=== PATIENT | female | born 2000 | race Caucasian/White ===

== ENCOUNTER 2018-09-22 12:00 | Day surgery (SDC) | payer MEDICAID, OTHER ==
[2018-09-22 12:59] VITALS: BMI 26.1
[2018-09-22] MEDS ORDERED: Lactated Ringer's 1,000 ML IV SCH ×2 (13:00)
[2018-09-22] MEDS ORDERED: Ondansetron PF 4 MG/2 ML Vial IVP SCH (13:00)
[2018-09-22 13:23] LABS: #Basophils 0.1 thou/uL (0.0-0.2); #Eosinphils 0.1 thou/uL (0.0-0.7); #Lymphocytes 1.7 thou/uL (1.20-3.40); #Monocytes 0.6 thou/uL (0.11-0.59); #Neutrophils 4.8 thou/uL (1.40-6.50); %Basophils 0.9 % (0.0-1.0); %Eosinophils 1.8 % (0.0-10.0); %Lymphocytes 23.2 % (28.0-48.0); %Monocytes 8.8 % (0.0-4.0); %Neutrophils 65.3 % (31.0-61.0); Hemoglobin 11.1 g/dL (12.0-16.0); Mean Corpuscular HGB CONC 33.2 g/dL (32.0-36.0); Mean Corpuscular Hemoglobin 28.5 pg (25.0-35.0); Mean Corpuscular Volume 85.8 fL (78.0-98.0); Mean Platelet Volume 6.6 fL (7.4-10.4); Platelet Count 299 thou/uL (130-400); RBC Distribution Width 11.4 % (11.5-14.5); White Blood Cell (WBC) Count 7.3 thou/uL (4.8-10.8)
[2018-09-22 13:47] LABS: ALT (SGPT) 39 U/L (8-55); AST (SGOT) 30 U/L (5-34); Albumin 3.2 g/dL (3.5-5.0); Alkaline Phosphatase 160 U/L (40-150); Anion Gap 11 mmol/L (10-20); BUN (Urea Nitrogen) 5 mg/dL (7.0-18.7); Bilirubin, Total 0.4 mg/dL (0.2-1.2); Calc. Creatinine Clearance 158 mL/min (70-130); Calcium 9.1 mg/dL (7.8-10.44); Carbon Dioxide 20 mmol/L (22-29); Chloride 107 mmol/L (98-107); Estimated GFR-MDRD Greater than 90; Globulin 3.2 g/dL (2.4-3.5); Glucose 74 mg/dL (70-105); Potassium 4.3 mmol/L (3.5-5.1); Protein, Total 6.4 g/dL (6.0-8.3); Sodium 134 mmol/L (136-145)
[2018-09-22 13:49] LABS: Bilirubin Negative (Negative); Blood, Urine Negative (Negative); Clarity CLOUDY (Clear); Glucose, Urine (Dipstick) Negative (Negative); Leukocyte Small (Negative); Nitrite Negative (Negative); Protein, Urine (Dipstick) Trace mg/dL (Neg-Trace); Specific Gravity, Urine 1.027 (1.002-1.036); pH, Urine 7.5 (5.0-9.0)
[2018-09-22 13:52] LABS: Bacteria/HPF None Seen HPF (None Seen); Hyaline Casts/LPF 0-3 HYALINE CAST LPF (0-3 Hyaline); Pathc Cast-AUWi Flag 1.45 (0-2.49); RBC/HPF 0-3 HPF (0-3); Squamous Epithelial 0-3 HPF (0-3)
[2018-09-22] MEDS ORDERED: Butorphanol Tartrate 1 MG/ML VIAL ONE (15:22)
[2018-09-22] MEDS ORDERED: Butorphanol Tartrate 1 MG/ML VIAL SLOW IVP PRN (15:25)
[2018-09-22] MEDS ORDERED: Fluconazole 100 MG TAB PO SCH (15:45)
[2018-09-22 16:18] LABS: Amphetamine Not Detected (NotDetected); Barbiturates Screen Not Detected (NotDetected); Benzodiazepine Screen Not Detected (NotDetected); Cocaine Metabolite Screen Not Detected (NotDetected); Medtox Control Line Valid? VALID (VALID); Medtox Reader # READER 1; Methadone Not Detected (NotDetected); Methamphetamine Not Detected (NotDetected); Opiate Screen Not Detected (NotDetected); Oxycodone Screen Not Detected (NotDetected); Phencyclidine (PCP) Not Detected (NotDetected); THC/Cannabinoid Screen Not Detected (NotDetected); Tricyclic Screen Not Detected (NotDetected)
--- NOTE | 2018-09-23 08:43 | SS ---
DATE OF ADMISSION: 09/22/2018 DATE OF DISCHARGE: 09/22/2018 LABOR AND DELIVERY TRIAGE NOTE. EVALUATING PHYSICIAN: Flakito Reyna MD CHIEF COMPLAINT: Dizzy, nausea, and cramping. HISTORY OF PRESENT ILLNESS: Ms. Hull is a 18-year-old white, G3, P1, AB1 with an estimated date of confinement on 11/08/2018, who presents to triage complaining of a 1-day history of dizzy with nausea and intermittent abdominal cramping. She denies bleeding or ruptured membranes. She reports active movement. The patient is from out of town and she is currently at the [facility]. PAST OBSTETRICAL HISTORY: One 35-week vaginal delivery, secondary to suspected preeclampsia and miscarriage. PAST MEDICAL HISTORY: None. PAST SURGICAL HISTORY: Tonsillectomy and adenoidectomy. CURRENT MEDICATIONS: vitamins and unknown antibiotic, for what she describes as urinary tract infection. ALLERGIES: IODINE. SOCIAL HISTORY: Denies tobacco, alcohol, or drug use. FAMILY HISTORY: Unremarkable. REVIEW OF SYSTEMS: Positive for nausea or cramping. Negative for fever, chills, ruptured membranes, or vaginal bleeding. PHYSICAL EXAMINATION: VITAL SIGNS: Blood pressure 113/69, pulse 92, and temperature 98.8. GENERAL: She answers all questions appropriately. She does look fatigued. ABDOMEN: Soft, nontender, and gravid. PELVIC EXAMINATION: Shows the cervix to be closed, very posterior in the vaginal vault. heart tones are stable in the 150s. Initially irregular contractions with irritability are seen. LABORATORY DATA: White count 7.3, hemoglobin and hematocrit 11.1 and 33.5 respectively, and platelet count 299,000. Chemistry; sodium 134, potassium 4.3, and creatinine 0.62. Urinalysis shows a specific gravity of 1.027. There is negative blood or nitrites. There is a small amount of leukocyte esterase. On microscopic, there are no bacteria. Urine drug screen is negative. The patient was given IV fluids and a single dose of Stadol. She responded well to this. Her pelvic exam was rechecked by the labor nurse and she had made no change. ASSESSMENT: 1. A 33-1/2 intrauterine . 2. No evidence of labor. 3. VPIII shows [place] and bacterial vaginosis. PLAN: The patient will be discharged to home. She was given a prescription for Flagyl 250 mg one p.o. t.i.d. to take for a week when she starts to feel better. She was given a dose of Diflucan here. I have spoken with the residency program and they will make arrangements for her to have an immediate appointment at the clinic. She voices understanding of her discharge instructions and was sent home in good condition. Job ID: [id number]
[2018-09-26 02:08] LABS: Chlamydia by PCR Not Detected (NotDetected); GC by PCR Not Detected (NotDetected)
== END 2018-09-22 17:28 | disposition home or self-care (01) ==
LOC: L&D/OP 12:00 → EEVIPCON 12:00 → L&D/OP 17:28
PROVIDERS: ATTEND Obstetrics & Gynecology
DX: O99.89 Other specified diseases and conditions complicating pregnancy, childbirth and the puerperium (principal); R42 Dizziness and giddiness; O23.593 Infection of other part of genital tract in pregnancy, third trimester; O98.813 Other maternal infectious and parasitic diseases complicating pregnancy, third trimester; Z3A.33 33 weeks gestation of pregnancy; Z90.89 Acquired absence of other organs; Z79.899 Other long term (current) drug therapy
CPT/HCPCS: 36415; 51701; 80053; 80306; 81003; 81015; 85025; 87480; 87491; 87510; 87591; 87660; 96360; 96361; 96375; 99285; A4353; J0595

== ENCOUNTER 2018-10-08 11:21 | Day surgery (SDC) | payer OTHER ==
[2018-10-08 11:47] VITALS: BP 115/74; TEMP 97.9
[2018-10-08 11:49] VITALS: BMI 28.3
--- NOTE | 2018-10-08 11:58 | PDOC.FPROB ---
FMR OB H&P: HPI - History of Present Illness Chief Complaint: PPROM Indentification: 18 yo at 36.0 wks by LMP/21.1wk US History of Present Illness: THis is a 18 yo at 36.0 wks by LMP/21.1wk US who presents to L&D with a cc of loss of fluids. Pt states that she felt a loss of clear fluids last night at ~1830 and had to change a pad. She also reports some contractions vs cramping with no pattern. She denies vaginal bleeding, itching, or burning. She denies recent intercourse. She reports FM. 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 - Surgical History Sx History: adenoidectomy, tonsillectomy - Social History Social History: none - Family History Family History: Mother and father have HTN and diabetes FMR OB H&P: Medications - Current Home Medications: Medication Instructions Recorded Confirmed Type Vitamin 1 tablet PO DAILY 10/08/18 10/08/18 History Allergies/Adverse Reactions: Allergies Allergy/AdvReac Type Severity Reaction Status Date / Time iodine Allergy Verified 09/22/18 12:46 FMR OB H&P: ROS - Review of Systems General: denies: fever/chills, weight/appetite/sleep changes, fatigue Eyes: denies: eye pain, vision changes ENT: denies: nasal congestion, rhinorrhea Cardiovascular: denies: chest pain, palpitation Respiratory: denies: cough, congestion, shortness of breath Gastrointestinal: denies: abdominal pain, indigestion Genitourinary (Female): reports: contractions (possible), vaginal pressure. denies: dysuria, vaginal pain, vaginal bleeding Musculoskeletal: denies: pain, stiffness, tenderness Neurologic: denies: numbness, syncope Integumentary: denies: itching, rash Psychological: reports: depression. denies: anxiety FMR OB H&P: Vital Signs - Maternal Vital signs: Vital Signs - First Documented Temp Pulse Resp BP 97.9 F 110 H 18 115/74 10/08/18 11:37 10/08/18 11:37 10/08/18 11:37 10/08/18 11:37 - Heart Tones Baseline: 150 (Reactive NST) Variability: moderate Acceleration: present Deceleration: absent [place] contractions every: None seen FMR OB H&P: Physical Exam - Physical Exam General: NAD, awake, alert and oriented HEENT: normocephalic and atraumatic, MMM Neck: supple, trachea midline Chest: non-tender to palpation, no lesions Heart: RRR, normal S1/S2, no murmurs/rubs/gallops General: CTAB, no respiratory distress Abdomen: soft, gravid, non-tender, bowel sound present Musculoskeletal: normal gait and station, pulses present, FROM in all four extremities Neurological: sensation to pain,touch and proprioception grossly normal Skin: good tugor, capillary refill <2 seconds Psychiatric: intact recent and remote memory, normal mood and affect - Pelvic Exam SVE: C/T/H FMR OB H&P: A/P - Problem List (1) Third trimester Status: Acute Code(s): Z34.93 - ENCNTR FOR SUPRVSN OF NORMAL PREG, UNSP, THIRD TRIMESTER Disposition: This is a 18 yo at 36.0wks by LMP/21.1 wk Third trimester , R/O ruptured membranes -Speculum exam and valsalva test inconclusive, white discharge noted -SVE C/T/H -Amnisure negative -HIRAM 7.3 -FHTs Reactive NST, accels present, baseline 150s, moderate variability, no contractions seen -Pending VP3 -Continue PNV Positive chlamydia test in clinic -Pending KELLY today Pt to be discharged and follow up with [facility] in 2-3 days. She will need a repeat HIRAM. Return precautions given. I called Aud[facility] at [facility] to coordinate the follow up visit above. Discussion: Date/Time: 10/08/18 6788 This H&P was discussed with Dr. Reyna who agree with the above documentation and plan. Signature: Chi Amaro, PGY-1 Addendum - Attending - Attending Attestation Date/Time: 10/08/18 2866 I evaluated the patient and discussed the management with Dr. Amaro. I agree with the History, Examination, Assessment and Plan.
[2018-10-08 12:48] LABS: Amnisure Test No Membranes Rupture (No Rupture)
[2018-10-08 12:50] LABS: Amnisure Internal Control QC ACCEPTABLE (ACCEPTABLE)
== END 2018-10-08 13:33 | disposition home or self-care (01) ==
LOC: L&D/OP 11:21
PROVIDERS: ATTEND Obstetrics & Gynecology
DX: O99.89 Other specified diseases and conditions complicating pregnancy, childbirth and the puerperium (principal); N89.8 Other specified noninflammatory disorders of vagina; O99.343 Other mental disorders complicating pregnancy, third trimester; F32.9 Major depressive disorder, single episode, unspecified; O99.013 Anemia complicating pregnancy, third trimester; O13.3 Gestational [pregnancy-induced] hypertension without significant proteinuria, third trimester; Z90.89 Acquired absence of other organs; Z3A.36 36 weeks gestation of pregnancy
CPT/HCPCS: 84112; 87480; 87510; 87660; 99283

== ENCOUNTER 2018-10-18 13:09 | Day surgery (SDC) | payer OTHER ==
[2018-10-18 13:56] VITALS: BMI 28.8
[2018-10-18] MEDS ORDERED: Acetaminophen 500 MG TAB PO SCH (14:30)
--- NOTE | 2018-10-18 14:33 | PDOC.FPROB ---
FMR OB H&P: HPI - History of Present Illness Chief Complaint: "baby dropping" History of Present Illness: 18 yo at 37.2 by LMP/reported 1T sono here with cc of feeling baby is lower. She notes that yesterday other people at the residential were telling her the baby was lower. Last night she had some irregular contractions and pelvic pain and felt baby was getting really low. She wanted to come in to get checked. She denies VB, endorses regular FM. She states she has some white discharge which she has had for weeks. She was "checked" a couple of weeks ago with no infection. She states the discharge has not changed. Denies dysuria, hematuria, foul smelling urine. Denies leakage of clear fluid. Primary Care Physician: Mer Mark DO FMR OB H&P: Current - Care : 3 Para: 1011 Gestational age: 37.2 Due date: 11/05/2018 Dating Criteria: LMP/reported 5w sono (c/w 30.2w sono) - OB Labs Blood type: B RH: negative Antibody Screen: negative HIV: negative RPR: negative HepBsAg: negative Rubella: non-immune Gonorrhea: negative Chlamydia: positive (reports KELLY negative at last office visit) 1 hour gtt: not documented - reportely normal A1c: 4.8 GBS: unknown (swab done earlier this week at clinic) - First Trimester Ultrasound First trimester: reports 5w sono - Anatomy Survey Anatomy survey: 30.2w sono - all normal, posterior placenta FMR OB H&P: History - Past Medical History PMH: "HTN in in the past" normal this Anemia of Depression Rh negative Rubella non-immune - OB History OB History: 1 labor at 36 w ( in 2017) 1 SAB - [employer] History [employer] History: 11/irregular/3 days - Surgical History Sx History: T&A Tympanostomy tubes - Social History Social History: Denies t/a/d use, lives in residential currently - Family History Family History: DM, HTN on both sides FMR OB H&P: Medications - Current Home Medications: Medication Instructions Recorded Confirmed Type Vitamin 1 tablet PO DAILY 10/08/18 10/18/18 History Allergies/Adverse Reactions: Allergies Allergy/AdvReac Type Severity Reaction Status Date / Time iodine Allergy Verified 09/22/18 12:46 FMR OB H&P: ROS - Review of Systems General: denies: fever/chills, weight/appetite/sleep changes Eyes: denies: vision changes, double vision ENT: denies: nasal congestion, rhinorrhea Cardiovascular: denies: chest pain, palpitation Respiratory: denies: cough, congestion Gastrointestinal: reports: abdominal pain. denies: nausea, vomiting, diarrhea Musculoskeletal: reports: pain. denies: stiffness, tenderness Neurologic: denies: numbness, syncope Integumentary: denies: rash, lesions Endocrine: denies: cold intolerance, heat intolerance Hematologic/Lymphatic: denies: prolonged or excessive bleeding Psychological: denies: depression, anxiety FMR OB H&P: Vital Signs - Maternal Vital signs: BP 95/69 P 94 R 16 - Heart Tones Baseline: 140 Variability: moderate Acceleration: present Deceleration: absent [place] contractions every: none FMR OB H&P: Physical Exam - Physical Exam General: NAD, awake, alert and oriented HEENT: normocephalic and atraumatic Neck: supple, trachea midline Heart: RRR, normal S1/S2 General: CTAB, no respiratory distress Abdomen: soft, gravid Musculoskeletal: normal gait and station Skin: no rash, good tugor Psychiatric: intact recent and remote memory, good judgement and insight, normal mood and affect - Pelvic Exam SVE: 0/50/-2 Presentation: vertex FMR OB H&P: A/P - Problem List (1) Pelvic pain Current Visit: Yes Status: Acute Code(s): R10.2 - PELVIC AND PERINEAL PAIN (2) Third trimester Current Visit: No Status: Acute Code(s): Z34.93 - ENCNTR FOR SUPRVSN OF NORMAL PREG, UNSP, THIRD TRIMESTER Disposition: 18 yo at 37.2 by LMP/reported 5w sono (c/w 30w sono) here with pelvic pressure 1. Pelvic pressure - still 0/50/-2 - return precautions given - no ctx on toco - tylenol PRN pelvic discomfort - encouraged hydration 2. Rh negative - confident she got Rhogam at 28w - will need #2 at delivery 3. Rubella non-immune - MMR post delivery 4. Depression - no SI/HI - no meds currently 5. Anemia of 6. H/o PTL - No [place] this preg - No longer 7. Chlamydia this - KELLY negative per patient 8. GBS swab done last clinic visit, pending F/u at [facility] next week Discussion: Date/Time: 10/18/18 2904 This H&P was discussed with Dr. Byrd who agrees with the above documentation and plan.
--- NOTE | 2018-10-18 14:43 | PDOC.EVN ---
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 No LOF, No VB, no real CTX. CX closed/th/high VSSAFEB NST reactive No reason to suspect maternal- complication OK for outpatient care. Please see full H&P other entry I have seen the patient at bedside and care discussed
== END 2018-10-18 14:45 | disposition home or self-care (01) ==
LOC: L&D/OP 13:09
PROVIDERS: ATTEND Obstetrics & Gynecology
DX: O99.89 Other specified diseases and conditions complicating pregnancy, childbirth and the puerperium (principal); R10.2 Pelvic and perineal pain; O99.013 Anemia complicating pregnancy, third trimester; O99.343 Other mental disorders complicating pregnancy, third trimester; F32.9 Major depressive disorder, single episode, unspecified; O98.813 Other maternal infectious and parasitic diseases complicating pregnancy, third trimester; Z3A.37 37 weeks gestation of pregnancy; Z90.89 Acquired absence of other organs; Z91.09 Other allergy status, other than to drugs and biological substances
CPT/HCPCS: 99282

== ENCOUNTER 2018-10-26 22:25 | Emergency (ER) | payer OTHER ==
[2018-10-27] MEDS ORDERED: Mag-Al 1200 mg/1200 mg/30 ML UDCUP ONE (00:29)
--- NOTE | 2018-10-27 08:40 | RAD ---
SINGLE VIEW OF THE CHEST: COMPARISON: None. HISTORY: Anxiety for 3 days with chest pain. FINDINGS: Single view of the chest shows a normal sized cardiomediastinal silhouette. There is no evidence of c onsolidation, mass, or pleural effusion. The bones are unremarkable. IMPRESSION: No evidence of acute cardiopulmonary disease. POS: [facility]
== END 2018-10-27 03:00 | disposition home or self-care (01) ==
LOC: ERS 22:25
DX: O99.613 Diseases of the digestive system complicating pregnancy, third trimester (principal); K21.9 Gastro-esophageal reflux disease without esophagitis; O99.343 Other mental disorders complicating pregnancy, third trimester; F41.9 Anxiety disorder, unspecified; F32.9 Major depressive disorder, single episode, unspecified; Z3A.38 38 weeks gestation of pregnancy
CPT/HCPCS: 71045; 93005

== ENCOUNTER 2018-10-29 06:18 | Inpatient (IN) | payer OTHER ==
[2018-10-29] MEDS ORDERED: Ibuprofen 800 MG TAB PO PRN (06:59)
[2018-10-29] MEDS ORDERED: Lidocaine 1% (PF) 30 ML VIAL SC PRN ×2 (06:59→07:46)
[2018-10-29] MEDS ORDERED: HYDROcodone/Acetaminophen 5/325 mg Tablet PO PRN (06:59)
[2018-10-29] MEDS ORDERED: Ondansetron PF 4 MG/2 ML Vial IVP PRN ×2 (06:59→07:34)
[2018-10-29] MEDS ORDERED: NS / Oxytocin 40 units/1000ml 1,000 ML IV PRN ×2 (06:59→07:46)
[2018-10-29] MEDS ORDERED: Lactated Ringer's 1,000 ML IV SCH (07:00)
[2018-10-29] MEDS ORDERED: Penicillin G Potassium 5 MILL.UNITS in Sodium Chloride 0.9% 100 ML IVPB SCH (07:00)
[2018-10-29] MEDS ORDERED: Fentanyl 4 mcg/Bup 0.1% Cadd 100 ML ONE (07:18)
[2018-10-29] MEDS ORDERED: Acetaminophen 325 MG TAB PO PRN ×2 (07:34→14:03)
[2018-10-29] MEDS ORDERED: Eucerin (Mineral Oil/Petrolatum,White) 30 gm Jar TOP PRN (07:34)
[2018-10-29] MEDS ORDERED: Promethazine HCl 25 MG/ML VIAL IM PRN (07:34)
[2018-10-29] MEDS ORDERED: ePHEDrine/0.9% NaCl/PF SYRINGE 50 mg/10 ml SLOW IVP PRN (07:34)
[2018-10-29] MEDS ORDERED: diphenhydrAMINE 50 MG/ML VIAL IVP PRN (07:34)
[2018-10-29] MEDS ORDERED: Lactated Ringer's 500 ML IV PRN (07:34)
[2018-10-29] MEDS ORDERED: Naloxone HCl 0.4 mg/ml Vial IVP PRN ×2 (07:34)
[2018-10-29 07:36] LABS: Hemoglobin 11.4 g/dL (12.0-16.0); Mean Corpuscular HGB CONC 34.2 g/dL (32.0-36.0); Mean Corpuscular Hemoglobin 28.3 pg (25.0-35.0); Mean Corpuscular Volume 82.8 fL (78.0-98.0); Platelet Count 239 thou/uL (130-400); RBC Distribution Width 12.6 % (11.5-14.5); Red Blood Cell (RBC) Count 4.03 mill/uL (4.00-5.20); White Blood Cell (WBC) Count 8.3 thou/uL (4.8-10.8)
[2018-10-29] MEDS ORDERED: Lidocaine 1.5%/Epinephrine 1:200,000 5 ML AMPUL IJ ONE (07:42)
[2018-10-29 07:43] VITALS: BMI 29.0
[2018-10-29] MEDS ORDERED: Fentanyl 4 mcg/Bupivacaine 0.1% Cassette 100 ML EPIDURAL SCH (07:45)
[2018-10-29] MEDS ORDERED: Communication Order-Pharmacy FS SCH (07:45)
--- NOTE | 2018-10-29 08:07 | PDOC.FPROB ---
FMR OB H&P: HPI - History of Present Illness Chief Complaint: CTX Indentification: History of Present Illness: at 38.4 by uncertain dating (sono records pending) here for CTX. Started this morning q5min inc. in frequency to q4min. Endorses FM. Denies LOF VB. Recevied prior care out of town in [place] with transfer to [facility]. complicated by chlamydia positive with tx 09/04/18 Primary Care Physician: Dr. Mark FMR OB H&P: Current - Care : 3 Para: 1001 Gestational age: 38.4 Due date: 11/05/18 - OB Labs Blood type: B RH: negative Antibody Screen: negative HIV: negative RPR: negative HepBsAg: negative Rubella: non-immune Quad screen: unknown (declined) Urine drug screen: not done Gonorrhea: negative Chlamydia: positive (tx 09/04/18 ,pending KELLY) GBS: unknown FMR OB H&P: History - Past Medical History PMH: MDD - OB History OB History: 1. Hx of PTL 2. SAB - Surgical History Sx History: tonsillectomy, adenoids - Social History Social History: denies t/e/d - Family History Family History: Pt's daughter has sickle cell trait but no hx of it being tested FMR OB H&P: Medications - Current Home Medications: Medication Instructions Recorded Confirmed Type Vitamin 1 tablet PO DAILY 10/08/18 10/29/18 History Allergies/Adverse Reactions: Allergies Allergy/AdvReac Type Severity Reaction Status Date / Time iodine Allergy Verified 10/29/18 07:28 FMR OB H&P: ROS - Review of Systems General: denies: fever/chills, weight/appetite/sleep changes ENT: denies: nasal congestion, rhinorrhea Cardiovascular: denies: chest pain, palpitation Respiratory: denies: shortness of breath Gastrointestinal: reports: cramping. denies: abdominal pain, indigestion, nausea Genitourinary (Female): reports: vaginal pressure. denies: vaginal discharge, vaginal pain Musculoskeletal: denies: stiffness, tenderness Neurologic: denies: syncope, seizures Integumentary: denies: rash, lesions FMR OB H&P: Vital Signs - Maternal Vital signs: Vital Signs - First Documented Temp Pulse Resp BP 97.8 F 76 20 115/74 10/29/18 07:26 10/29/18 07:26 10/29/18 07:26 10/29/18 07:26 - Heart Tones Baseline: 130 Variability: moderate Acceleration: present Deceleration: absent Category: category 1 [place] contractions every: uterine irritability FMR OB H&P: Physical Exam - Physical Exam General: NAD, awake, alert and oriented HEENT: normocephalic and atraumatic Neck: supple, FROM, trachea midline Breast: symmetric, non-tender General: no retractions Abdomen: gravid Musculoskeletal: pulses present, FROM in all four extremities Psychiatric: intact recent and remote memory, good judgement and insight - Pelvic Exam SVE: /+1 FMR OB H&P: Results - Labs Lab results: Laboratory Results - last 24 hr 10/29/18 10/29/18 07:29 07:29 WBC 8.3 RBC 4.03 Hgb 11.4 L Hct 33.4 L MCV 82.8 MCH 28.3 MCHC 34.2 RDW 12.6 Plt Count 239 MPV 7.0 L Blood Type B NEGATIVE Antibody Screen NEGATIVE FMR OB H&P: A/P - Problem List (1) Third trimester Current Visit: No Status: Acute Code(s): Z34.93 - ENCNTR FOR SUPRVSN OF NORMAL PREG, UNSP, THIRD TRIMESTER (2) Rh negative status during Current Visit: Yes Status: Acute Code(s): O26.899 - OTH RELATED CONDITIONS, UNSPECIFIED TRIMESTER; Z67.91 - UNSPECIFIED BLOOD TYPE, RH NEGATIVE (3) Rubella non-immune status, antepartum Current Visit: Yes Status: Acute Code(s): O99.89 - OTH DISEASES AND CONDITIONS COMPL PREG/CHLDBRTH; Z28.3 - UNDERIMMUNIZATION STATUS (4) History of chlamydia infection Current Visit: Yes Status: Acute Code(s): Z86.19 - PERSONAL HISTORY OF OTHER INFECTIOUS AND PARASITIC DISEASES (5) Major depression, chronic Current Visit: Yes Status: Acute Code(s): F32.9 - MAJOR DEPRESSIVE DISORDER , SINGLE EPISODE, UNSPECIFIED (6) History of labor Current Visit: Yes Status: Acute Code(s): Z87.51 - PERSONAL HISTORY OF PRE- TERM LABOR Discussion: Date/Time: 10/29/18 0804 18 yo at 38.4 by uncertain dating (record pending) admitted for active labor #sIUP, term -/+1, intact, uterine irritability -epidural placed -will recheck at 0840, can start pitocin at this time to help with CTX #Rubella nonimmune -will need PP vaccination #Rh negative -no records of Rhogam, will need this #Chlamydia in -Treated 09/04/18, no records of KELLY -Will request records #GBS unknown -No hx of septicemia, will start PPX until records come in #MDD -stable per last clinic records -on zoloft, hold for now This H&P was discussed with [] and [] who agree with the above documentation and plan. Addendum - Attending - Attending Attestation Date/Time: 10/29/18 1202 I personally evaluated the patient and discussed the management with Dr. Brewster. I agree with the History, Examination, Assessment and Plan documented above.
[2018-10-29 08:15] LABS: HBSAg Index 0.27 S/CO (0-0.99); Hep B Surf Ag Non-Reactive S/CO (NonReactive); Syphilis Antibody Nonreactive (Nonreactive); Syphilis Antibody Index 0.05 S/CO (<1.00 Non-Reactive)
[2018-10-29] MEDS ORDERED: NS w/ Oxytocin 10 units 500 ML IV SCH (09:00)
[2018-10-29] MEDS: Lactated Ringer's 1,000 ML IV SCH ×2 (09:53→10:35)
[2018-10-29] MEDS ORDERED: Lidocaine 1% (PF) 30 ML VIAL ONE (10:34)
[2018-10-29] MEDS ORDERED: NS / Oxytocin 40 units/1000ml 1,000 ML ONE (10:34)
[2018-10-29] MEDS ORDERED: Penicillin G 2.5 MILL.units 2.5 MILL.UNITS in Premix Bag 1 BAG IVPB SCH (11:00)
--- NOTE | 2018-10-29 11:42 | PDOC.LDPN ---
Labor & Delivery Progress Note - Subjective Subjective: comfortable, vaginal pressure - Objective Vital signs reviewed and normal: yes General: NAD Dilation: 7 Effacement: 90% Station: 1+ FHT: category 1 [place] contractions every: uterine irritability AROM: clear fluid - Assessment (1) Third trimester Code(s): Z34.93 - ENCNTR FOR SUPRVSN OF NORMAL PREG, UNSP, THIRD TRIMESTER Current Visit: No Status: Acute (2) Rh negative status during Code(s): O26.899 - OTH RELATED CONDITIONS, UNSPECIFIED TRIMESTER; Z67.91 - UNSPECIFIED BLOOD TYPE, RH NEGATIVE Current Visit: Yes Status: Acute (3) Rubella non-immune status, antepartum Code(s): O99.89 - OTH DISEASES AND CONDITIONS COMPL PREG/CHLDBRTH; Z28.3 - UNDERIMMUNIZATION STATUS Current Visit: Yes Status: Acute (4) History of chlamydia infection Code(s): Z86.19 - PERSONAL HISTORY OF OTHER INFECTIOUS AND PARASITIC DISEASES Current Visit: Yes Status: Acute (5) Major depression, chronic Code(s): F32.9 - MAJOR DEPRESSIVE DISORDER, SINGLE EPISODE, UNSPECIFIED Current Visit: Yes Status: Acute (6) History of labor Code(s): Z87.51 - PERSONAL HISTORY OF PRE-TERM LABOR Current Visit: Yes Status: Acute Plan: continue plan of care, pitocin for augmentation -: 18 yo at 38.4 by uncertain dating (record pending) admitted for active labor #sIUP, term -/+1, intact, uterine irritability -epidural placed -AROM, clear -start pitocin, recheck in 2 hours #Rubella nonimmune -will need PP vaccination #Rh negative -no records of Rhogam, will need this #Chlamydia in -Treated 09/04/18, no records of KELLY -Will request records #GBS unknown -No hx of septicemia, will start PPX until records come in #MDD -stable per last clinic records -on zoloft, hold for now Addendum - Attending - Attending Attestation Date/Time: 10/29/18 1201 I personally evaluated the patient and discussed the management with Dr. Brewster. I agree with the History, Examination, Assessment and Plan documented above.
--- NOTE | 2018-10-29 11:47 | PDOC.EVN ---
Event Note - Event Note Event Note: Vaginal Delivery Procedure Note Delivering Physician: Deedee Epps Attending Dr. Reyna Procedure: Spontaneous Vaginal Delivery Anesthesia: epidural QBL: Pending (EBL 200) Pre-op Diagnosis: 1. Term intrauterine in labor 2. Hx of macrosomia, hx of preeclampsia, hx of infections Post-op Diagnosis: 1. Term intrauterine , delivered 2. same as above Indications: A 18y/o female now presents for CTX Delivery Note: This is 18yo F now @ 38.4 wks who delivered a viable F infant on 10/29/18 @1112 Following an uneventful antepartum course, a vigorous F was delivered over the perineum in the occipitoanterior position. Anterior Shoulder and then remainder of the body delivered. No nuchal cord. The head was held down and mouth and nares were bulb suctioned. Cord clamped after delayed cord clamping and cut and cord blood collected. Placenta delivered intact in the Laws presentation with a 3 vessel cord noted. Fundal massage was performed and the fundus was firm. The cervix and vagina were inspected and presence of 1st degree perineal laceration was found. Hemostasis spontaneously achieved without suture repair. went to nursery in good condition for routine care. Apgars were 8/9 at 1 & 5 minutes, respectively. Patient tolerated delivery well and went to after routine recovery/ care. Addendum - Attending - Attending Attestation Date/Time: 10/29/18 0786 I personally evaluated the patient and discussed the management with Drs. Brewster and Alex. I agree with the History, Examination, Assessment and Plan documented above. Present to assist with this uncomplicated .
[2018-10-29] MEDS ORDERED: Adacel (T-DAP) 0.5 ML SYRINGE IM ONE (14:03)
[2018-10-29] MEDS ORDERED: NS / Oxytocin 40 units/1000ml 1,000 ML IV SCH (14:03)
[2018-10-29] MEDS ORDERED: Bisacodyl 10 MG SUPP PR PRN (14:03)
[2018-10-29] MEDS ORDERED: Milk Of Magnesia 30 ML UDCUP PO PRN (14:03)
[2018-10-29] MEDS: Ibuprofen 800 MG TAB PO PRN (15:01)
[2018-10-29] MEDS: Ferrous Sulfate 325 MG TAB PO SCH (17:39)
[2018-10-29] MEDS ORDERED: ePHEDrine/0.9% NaCl/PF SYRINGE 50 mg/10 ml ONE (20:09)
[2018-10-29] MEDS: Docusate Calcium (SURFAK) 240 MG CAP PO SCH (22:07)
[2018-10-30] MEDS: Ibuprofen 800 MG TAB PO PRN ×2 (05:51→12:37)
[2018-10-30 07:11] LABS: Mean Corpuscular HGB CONC 33.2 g/dL (32.0-36.0); Mean Corpuscular Hemoglobin 28.4 pg (25.0-35.0); Mean Corpuscular Volume 85.5 fL (78.0-98.0); Mean Platelet Volume 7.1 fL (7.4-10.4); Platelet Count 265 thou/uL (130-400); RBC Distribution Width 12.8 % (11.5-14.5); Red Blood Cell (RBC) Count 4.23 mill/uL (4.00-5.20); White Blood Cell (WBC) Count 8.8 thou/uL (4.8-10.8)
--- NOTE | 2018-10-30 07:20 | PDOC.PP ---
Post Progress Note Post Day #: 1 Subjective: Patient doing very well. Tolerating PO. Minimal lochia. well. Pain well controlled. PO intake tolerated: yes Flatus: yes Ambulation: yes Vital Signs (12 hours) Temp Pulse Resp BP Pulse Ox 10/30/18 04:20 98.2 F 61 18 98/66 10/30/18 00:50 98.5 F 69 18 111/71 10/29/18 19:30 98.8 F 58 L 18 110/56 L 98 Weight Weight 74.389 kg - Physical Examination General: NAD Cardiovascular: RRR Respiratory: non-labored breathing Abdominal: lochia (minimal), no distention, appropriately TTP Fundus firm & at: at umbilicus Neurological: no gross focal deficits Psychiatric: A&Ox3, normal affect Result Diagrams: 10/30/18 06:40 Additional Labs: Post Labs Blood Type B NEGATIVE 10/29/18 07:29 Hep Bs Antigen Non-Reactive S/CO (NonReactive) 10/29/18 07:29 (1) Term delivered Code(s): O80 - ENCOUNTER FOR FULL-TERM UNCOMPLICATED DELIVERY Status: Acute (2) Rubella nonimmune status, delivered, current hospitalization Code(s): O99.89 - OTH DISEASES AND CONDITIONS COMPL PREG/CHLDBRTH; Z28.3 - UNDERIMMUNIZATION STATUS Status: Acute (3) History of chlamydia infection Code(s): Z86.19 - PERSONAL HISTORY OF OTHER INFECTIOUS AND PARASITIC DISEASES Status: Acute (4) Major depression, chronic Code(s): F32.9 - MAJOR DEPRESSIVE DISORDER, SINGLE EPISODE, UNSPECIFIED Status : Acute (5) Rh negative status during Code(s): O26.899 - OTH RELATED CONDITIONS, UNSPECIFIED TRIMESTER; Z67.91 - UNSPECIFIED BLOOD TYPE, RH NEGATIVE Status: Acute - Assessment/Plan 18 year old G3 now P2 delivered TAGA F infant on 10/29 via 1. Routine PP care - PP day #1 - No complications - well - Tolerating PO - Minimal lochia - GBS negative 2. Rh negative - Rh negative; will not need rhogam PP 3. Rubella non-immune - Will need immunization prior to d/c 4. Chlamydia in s/p negative KELLY 5. 1st degree perineal laceration; hemostatic Plan: Discharge home today pending infant bilirubin level at 24 hours. Addendum - Attending - Attending Attestation Date/Time: 10/30/18 8751 I personally evaluated the patient and discussed the management with Dr. Johnson. I agree with the History, Examination, Assessment and Plan documented above.
[2018-10-30] MEDS: Docusate Calcium (SURFAK) 240 MG CAP PO SCH (08:44)
[2018-10-30] MEDS: Ferrous Sulfate 325 MG TAB PO SCH ×2 (08:44→10:19)
[2018-10-30] MEDS ORDERED: Prenatal Vitamin 1 TAB PO SCH (09:00)
[2018-10-30 12:05] VITALS: BP 111/78; TEMP 97.9
[2018-10-30] MEDS ORDERED: Measles/Mumps/Rubella 10 MCG/0.5 ML VIAL SC ONE (13:45)
== END 2018-10-30 14:30 | disposition home or self-care (01) | DRG 807 ==
LOC: L&D/OP 06:18 → EEVIPCON 07:44 → L&D 07:44 → 3SW 13:54
PROVIDERS: ADMIT Obstetrics & Gynecology; ATTEND Obstetrics & Gynecology
PROC: 10E0XZZ Delivery of Products of Conception, External Approach (ICD-10-PCS; principal; 2018-10-29)
PROC: 0HQ9XZZ Repair Perineum Skin, External Approach (ICD-10-PCS; 2018-10-29)
DX: O26.893 Other specified pregnancy related conditions, third trimester (principal); Z37.0 Single live birth; O99.89 Other specified diseases and conditions complicating pregnancy, childbirth and the puerperium; O99.344 Other mental disorders complicating childbirth; F32.9 Major depressive disorder, single episode, unspecified; O70.0 First degree perineal laceration during delivery; Z67.91 Unspecified blood type, Rh negative; Z28.3 Underimmunization status; Z86.19 Personal history of other infectious and parasitic diseases; Z3A.38 38 weeks gestation of pregnancy; Z87.51 Personal history of pre-term labor
CPT/HCPCS: 36415; 51702; 85027; 86780; 86850; 86900; 86901; 87340; 99285; J2001; J3490

== ENCOUNTER 2018-11-01 20:01 | Emergency (ER) | payer OTHER ==
[2018-11-01 21:35] LABS: Bilirubin Negative (Negative); Blood, Urine Negative (Negative); Clarity CLEAR (Clear); Glucose, Urine (Dipstick) Negative (Negative); Leukocyte Small (Negative); Nitrite Negative (Negative); Protein, Urine (Dipstick) Negative (Neg-Trace); Specific Gravity, Urine 1.019 (1.002-1.036); Urobilinogen 0.2 mg/dL (0.2-1.0)
--- NOTE | 2018-11-01 21:37 | CT ---
CT BRAIN 11/01/18 HISTORY: Headache. Noncontrast enhanced CT images of the brain obtained. The brain is unremarkable. No evidence of intracranial masses, hemorrhages, strokes or contusions see n. Ventricles are of normal size. IMPRESSION: Normal CT brain. POS: [facility]
[2018-11-01 21:38] LABS: Bacteria/HPF None Seen HPF (None Seen); Hyaline Casts/LPF 0-3 HYALINE CAST LPF (0-3 Hyaline); RBC/HPF 0-3 HPF (0-3); Squamous Epithelial 0-3 HPF (0-3)
[2018-11-01] MEDS ORDERED: Ketorolac Tromethamine 30 MG/ML VIAL ONE (21:49)
[2018-11-01] MEDS ORDERED: diphenhydrAMINE 50 MG/ML VIAL ONE ×2 (21:49→21:55)
[2018-11-01] MEDS ORDERED: Metoclopramide HCl 10 MG/2 ML VIAL ONE (21:49)
[2018-11-01 21:54] LABS: #Eosinphils 0.1 thou/uL (0.0-0.7); #Lymphocytes 1.6 thou/uL (1.20-3.40); #Monocytes 0.5 thou/uL (0.11-0.59); %Basophils 0.2 % (0.0-1.0); %Eosinophils 0.7 % (0.0-10.0); %Lymphocytes 19.4 % (28.0-48.0); %Monocytes 6.5 % (0.0-4.0); %Neutrophils 73.2 % (31.0-61.0); Hemoglobin 12.4 g/dL (12.0-16.0); Mean Corpuscular HGB CONC 33.6 g/dL (32.0-36.0); Mean Corpuscular Hemoglobin 28.3 pg (25.0-35.0); Mean Corpuscular Volume 84.4 fL (78.0-98.0); Mean Platelet Volume 6.2 fL (7.4-10.4); Platelet Count 331 thou/uL (130-400); RBC Distribution Width 13.2 % (11.5-14.5); Red Blood Cell (RBC) Count 4.39 mill/uL (4.00-5.20); White Blood Cell (WBC) Count 8.2 thou/uL (4.8-10.8)
[2018-11-01 22:13] LABS: ALT (SGPT) 61 U/L (8-55); AST (SGOT) 68 U/L (5-34); Albumin 3.6 g/dL (3.5-5.0); Alkaline Phosphatase 160 U/L (40-150); Anion Gap 10 mmol/L (10-20); BUN (Urea Nitrogen) 11 mg/dL (7.0-18.7); Bilirubin, Total 0.4 mg/dL (0.2-1.2); CRP (Inflammatory) 3.38 mg/dL (= or < 0.5); Calc. Creatinine Clearance 0 mL/min (70-130); Calcium 8.6 mg/dL (7.8-10.44); Carbon Dioxide 23 mmol/L (22-29); Chloride 108 mmol/L (98-107); Estimated GFR-MDRD Greater than 90; Globulin 3.4 g/dL (2.4-3.5); Glucose 85 mg/dL (70-105); Potassium 3.5 mmol/L (3.5-5.1); Sodium 137 mmol/L (136-145)
== END 2018-11-01 23:16 | disposition home or self-care (01) ==
LOC: ERS 20:01
DX: O99.89 Other specified diseases and conditions complicating pregnancy, childbirth and the puerperium (principal); R51 Headache; M54.5 Low back pain; I10 Essential (primary) hypertension; F41.9 Anxiety disorder, unspecified; F32.9 Major depressive disorder, single episode, unspecified
CPT/HCPCS: 70450; 80053; 81003; 81015; 85025; 86140; 87086; 96361; 96374; 96375; J1200; J1885; J2765

== ENCOUNTER 2019-02-10 14:18 | Emergency (ER) | payer OTHER ==
[2019-02-10 14:53] LABS: #Eosinphils 0.2 thou/uL (0.0-0.7); #Lymphocytes 2.1 thou/uL (1.20-3.40); #Monocytes 0.5 thou/uL (0.11-0.59); #Neutrophils 3.2 thou/uL (1.40-6.50); %Basophils 0.5 % (0.0-1.0); %Eosinophils 4.1 % (0.0-10.0); %Lymphocytes 34.2 % (28.0-48.0); %Monocytes 7.8 % (0.0-4.0); %Neutrophils 53.4 % (31.0-61.0); Hemoglobin 13.1 g/dL (12.0-16.0); Mean Corpuscular Hemoglobin 28.4 pg (25.0-35.0); Mean Corpuscular Volume 85.9 fL (78.0-98.0); Mean Platelet Volume 6.2 fL (7.4-10.4); Platelet Count 286 thou/uL (130-400); RBC Distribution Width 11.2 % (11.5-14.5)
[2019-02-10 15:17] LABS: ALT (SGPT) 19 U/L (8-55); AST (SGOT) 17 U/L (5-34); Albumin 4.4 g/dL (3.5-5.0); Alkaline Phosphatase 74 U/L (40-150); Anion Gap 11 mmol/L (10-20); BUN (Urea Nitrogen) 13 mg/dL (7.0-18.7); Bilirubin, Total 0.5 mg/dL (0.2-1.2); Calc. Creatinine Clearance 0 mL/min (70-130); Calcium 9.6 mg/dL (7.8-10.44); Carbon Dioxide 27 mmol/L (22-29); Chloride 105 mmol/L (98-107); Estimated GFR-MDRD 76; Glucose 82 mg/dL (70-105); Potassium 3.8 mmol/L (3.5-5.1); Protein, Total 7.4 g/dL (6.0-8.3); Sodium 139 mmol/L (136-145)
[2019-02-10 16:13] LABS: INR-International Normal Ratio 1.1; PTT 30.3 SEC (22.9-36.1); Prothrombin Time 14.1 SEC (12.0-14.7)
== END 2019-02-10 17:40 | disposition left against medical advice (07) ==
LOC: ERS 14:18
DX: Z53.21 Procedure and treatment not carried out due to patient leaving prior to being seen by health care provider (principal)
CPT/HCPCS: 36415; 80053; 85025; 85610; 85730

== ENCOUNTER 2019-02-13 13:20 | Emergency (ER) | payer OTHER, SELFPAY ==
[2019-02-13 14:24] LABS: Bilirubin Negative (Negative); Blood, Urine Negative (Negative); Glucose, Urine (Dipstick) Negative (Negative); Leukocyte Negative (Negative); Nitrite Negative (Negative); Protein, Urine (Dipstick) Negative (Neg-Trace); Urobilinogen 0.2 mg/dL (0.2-1.0)
[2019-02-13 14:26] LABS: Clarity Clear (Clear)
[2019-02-13 14:28] LABS: Pregnancy Test - Urine (BHCG) Negative (Negative); Pregu Control Background? CLEAR/WHITE (CLR/WHITE); Pregu Control Bar Appear? YES (CONTROL BAR)
[2019-02-13 14:31] LABS: #Eosinphils 0.2 thou/uL (0.0-0.7); #Lymphocytes 1.8 thou/uL (1.20-3.40); #Monocytes 0.5 thou/uL (0.11-0.59); %Basophils 0.5 % (0.0-1.0); %Eosinophils 3.4 % (0.0-10.0); %Lymphocytes 33.4 % (28.0-48.0); %Monocytes 8.3 % (0.0-4.0); %Neutrophils 54.6 % (31.0-61.0); Hemoglobin 12.9 g/dL (12.0-16.0); Mean Corpuscular HGB CONC 34.4 g/dL (32.0-36.0); Mean Corpuscular Hemoglobin 29.5 pg (25.0-35.0); Mean Corpuscular Volume 85.8 fL (78.0-98.0); Mean Platelet Volume 6.1 fL (7.4-10.4); Platelet Count 281 thou/uL (130-400); RBC Distribution Width 11.1 % (11.5-14.5); Red Blood Cell (RBC) Count 4.37 mill/uL (4.00-5.20); White Blood Cell (WBC) Count 5.5 thou/uL (4.8-10.8)
[2019-02-13 14:37] LABS: INR-International Normal Ratio 1.1; PTT 29.4 SEC (22.9-36.1)
[2019-02-13 14:54] LABS: ALT (SGPT) 16 U/L (8-55); AST (SGOT) 17 U/L (5-34); Albumin 4.6 g/dL (3.5-5.0); Alkaline Phosphatase 80 U/L (40-150); Anion Gap 12 mmol/L (10-20); BUN (Urea Nitrogen) 12 mg/dL (7.0-18.7); Bilirubin, Total 0.7 mg/dL (0.2-1.2); Calc. Creatinine Clearance 0 mL/min (70-130); Calcium 9.9 mg/dL (7.8-10.44); Carbon Dioxide 24 mmol/L (22-29); Chloride 106 mmol/L (98-107); Estimated GFR-MDRD Greater than 90; Globulin 2.9 g/dL (2.4-3.5); Glucose 97 mg/dL (70-105); Potassium 3.5 mmol/L (3.5-5.1); Protein, Total 7.5 g/dL (6.0-8.3); Sodium 138 mmol/L (136-145)
--- NOTE | 2019-02-13 15:08 | RAD ---
PORTABLE CHEST 1 VIEW: Date: 02/13/19 Time: 1411 hours HISTORY: Cough. FINDINGS: Comparison made with exam of 10/26/18. The cardiomediastinum is normal. The lungs are expanded and clear. The bony thorax is normal. IMPRESSION: Normal exam. POS: [facility]
[2019-02-13 15:13] LABS: BHCG - Serum Negative (NEGATIVE); Pregs Control Background? CLEAR/WHITE (CLR/WHITE); Pregs Control Bar Appear? YES (CONTROL BAR)
--- NOTE | 2019-02-13 15:29 | CT ---
CT Abdomen Pelvis WO Con 02/13/2019 2:59 PM HISTORY: Rectal bleeding with onset 3-4 days ago. Weakness, nausea, abdominal cramping. COMPARISON: None. Technique: Multiple contiguous axial CT images are obtained through the abdomen and pelvis without IV contrast. Coronal reformats are provided. FINDINGS: This examination is limited for the evaluation of solid organs and vascular structures due to the lac k of intravenous contrast. Lower Chest: within normal limits. Abdomen: Liver: within normal limits. Gallbladder: Gallbladder is decompressed with calcifications seen in the gallbladder related to sherin lithiasis. Pancreas: Limited due to the lack of intravenous contrast, but no obvious pancreatic mass is apprecia juanito. No pancreatic or peripancreatic fluid collection is seen. Spleen: within normal limits. Adrenals: within normal limits. Kidneys: No renal calculi are visualized, and there is no evidence of hydronephrosis. Ureters: No ureteral calculus is seen.. Pelvis: Urinary bladder: within normal limits. Reproductive Organs: A 2.4 cm low-density structure seen in the right posterior lateral aspect of the pelvis adjacent to the uterus may represent a right ovarian cyst. This difficult further evaluated on this nonenhanced CT scan exam. Lymph Nodes: No enlarged lymph nodes. Bowel: Normal caliber. Appendix: The appendix is normal in caliber. Peritoneum: No free fluid, free air, or fluid collection. Retroperitoneum: within normal limits. Vessels: Abdominal aorta is normal in caliber.. Abdominal Wall: within normal limits. Bones: within normal limits. IMPRESSION: 1. No renal or ureteral calculi are seen bilaterally. 2. Cholelithiasis. 3. Hypodense cystic appearing lesion right lower pelvis which may possibly represent a right adnexal cyst associated with the right ovary.
== END 2019-02-13 16:05 | disposition home or self-care (01) ==
LOC: ERS 13:20
DX: K62.5 Hemorrhage of anus and rectum (principal); F41.9 Anxiety disorder, unspecified; F32.9 Major depressive disorder, single episode, unspecified; I10 Essential (primary) hypertension
CPT/HCPCS: 71045; 74176; 80053; 81003; 81025; 82274; 83690; 84703; 85025; 85610; 85730; 96360

== ENCOUNTER 2019-07-04 16:15 | Observation (INO) | payer OTHER, SELFPAY ==
[2019-07-04] MEDS ORDERED: Ondansetron PF 4 MG/2 ML Vial ONE (16:43)
[2019-07-04 16:54] LABS: #Eosinphils 0.1 thou/uL (0.0-0.7); #Monocytes 0.5 thou/uL (0.11-0.59); #Neutrophils 4.5 thou/uL (1.40-6.50); %Basophils 0.7 % (0.0-1.0); %Eosinophils 1.8 % (0.0-10.0); %Lymphocytes 28.1 % (21.0-51.0); %Monocytes 6.5 % (0.0-10.0); %Neutrophils 62.9 % (42.0-75.0); Hemoglobin 13.9 g/dL (12.0-16.0); Mean Corpuscular HGB CONC 33.6 g/dL (32.0-36.0); Mean Corpuscular Volume 86.4 fL (78.0-98.0); Mean Platelet Volume 6.3 fL (7.4-10.4); Platelet Count 292 thou/uL (130-400); Red Blood Cell (RBC) Count 4.77 mill/uL (4.20-5.40); White Blood Cell (WBC) Count 7.2 thou/uL (4.8-10.8)
[2019-07-04 17:16] LABS: ALT (SGPT) 17 U/L (8-55); AST (SGOT) 20 U/L (5-34); Albumin 4.9 g/dL (3.5-5.0); Alcohol Less than 10 mg/dL (Less than 10); Alkaline Phosphatase 79 U/L (40-110); Anion Gap 13 mmol/L (10-20); BUN (Urea Nitrogen) 8 mg/dL (7.0-18.7); Bilirubin, Total 0.3 mg/dL (0.2-1.2); Calc. Creatinine Clearance 0 mL/min (70-130); Calcium 9.9 mg/dL (7.8-10.44); Carbon Dioxide 21 mmol/L (22-29); Chloride 106 mmol/L (98-107); Estimated GFR-MDRD Greater than 90; Globulin 3.3 g/dL (2.4-3.5); Glucose 89 mg/dL (70-105); Potassium 3.8 mmol/L (3.5-5.1); Protein, Total 8.2 g/dL (6.0-8.3); Sodium 136 mmol/L (136-145)
--- NOTE | 2019-07-04 17:22 | RAD ---
Time: Chest one view 2 views abdomen HISTORY: Vomiting. FINDINGS: 1. View chest: Normal cardiac silhouette. Lungs and pleural space 2 views abdomen: No pneumoperitoneum. No suspicious densities in the abdomen or pelvis. No evidence of bowel distenti on or dilatation. No differential air-fluid levels IMPRESSION: 1. No acute cardiopulmonary process 2. Nonspecific bowel gas pattern Transcribed Date/Time: 07/04/2019 5:50 PM
[2019-07-04] MEDS ORDERED: Promethazine HCl 25 MG/ML VIAL ONE (17:25)
[2019-07-04 17:26] LABS: Acetaminophen Less than 6.0 mcg/mL (10.0-30.0); Alcohol Less than 10 mg/dL (Less than 10); Lipase 42 U/L (8-78); Salicylate Less than 8.0 mg/dL (15.0-30.0)
[2019-07-04 18:20] LABS: Bilirubin Negative (Negative); Blood, Urine Negative (Negative); Clarity Turbid (Clear); Glucose, Urine (Dipstick) Normal (Negative); Leukocyte 500 Leu/uL (Negative); Nitrite Negative (Negative); Protein, Urine (Dipstick) 10 mg/dL (Neg-Trace); RBC/HPF 0-3 HPF (0-3); Squamous Epithelial 21-50 HPF (0-3); Urobilinogen Normal mg/dL (Less than 2)
[2019-07-04 18:27] LABS: Bacteria/HPF Rare-Few HPF (None Seen)
[2019-07-04 18:30] LABS: Medtox Reader # READER 1
[2019-07-04 18:31] LABS: Amphetamine Not Detected (NotDetected); Barbiturates Screen Not Detected (NotDetected); Benzodiazepine Screen Not Detected (NotDetected); Cocaine Metabolite Screen Not Detected (NotDetected); Medtox Control Line Valid? VALID (VALID); Methadone Not Detected (NotDetected); Methamphetamine Not Detected (NotDetected); Opiate Screen Not Detected (NotDetected); Oxycodone Screen Not Detected (NotDetected); Phencyclidine (PCP) Not Detected (NotDetected); THC/Cannabinoid Screen Not Detected (NotDetected); Tricyclic Screen Not Detected (NotDetected)
--- NOTE | 2019-07-04 18:33 | ULT ---
TRANSABDOMINAL AND TRANSVAGINAL PELVIC ULTRASOUND WITH DONAHUE SCALE, COLOR FLOW AND SPECTRAL DOPPLER IM AGIN07/04/19 HISTORY: Iron overdose; abdominal pain. FINDINGS: The uterus measures 9.7 x 6.4 x 7.9 cm. The right ovary measures 3.1 x 2.1 x 1.8 cm. The left ovary m easures 3.5 x 2.4 x 2.7 cm. There is a 2.6 cm corpus luteal cyst in the left ovary. Flow is demonstra juanito to both ovaries. There is a single intrauterine gestation with measurements corresponding to an estimated gestational age of 6 weeks, 2 days. The gestational sac diameter measures 1.37 cm and yolk sac diameter measures 0.16 cm. pole or heart rate are not seen. There is no evidence of subchorionic hemorrha ge. No free fluid is seen. IMPRESSION: Single intrauterine gestation of 6 weeks, 2 days estimated gestational age without demonstrable heart tones. RECOMMENDATIONS: Correlation with serial serum beta HCG levels and follow-up ultrasound is recommended. POS: WAYNE
[2019-07-04] MEDS ORDERED: Sodium Chloride 0.9% 1,000 ML IV SCH (21:53)
--- NOTE | 2019-07-04 21:58 | PDOC.HHP ---
Hospitalist HPI - History of Present Illness "to get checked out after being lied to that PNVs & B12 would abort baby" History of Present Illness: 19YO @ an estimated 6.2 WGA by mariam done in ED today who presents for evaluation after admittedly taking ~41 PNVs and 3 vitamin B12 tablets of an unknown dose in order to try to abort her . The patient reports that a friend told her this was an effective way to abort babies but shortly after ingesting the medications she found out this was not true and that she actually may have harmed herself so she came to the ED to get evaluated. She reports feeling nauseous, lightheaded and weak upon arrival to the ED that has since improved. Denies any vaginal discharge, bleeding or abdominal pain. Also denies any vision changes, headache, chest pain, or SOB. Firmly denies that she was attempting to harm herself but is still desiring an . Denies any issues with anxiety or depression and denies any h/o suicide attempts. Denies any current SI. Of note, upon questioning patient reports that the father of the baby is no longer with her and that she is currently "homeless" living at a friend's house with her 2 children. States she cannot support a third child on her own right now. Says her family is not supportive. ED Course: 12.5mg phenergan, 4mg zofran ODT, 1L NS & NS @ 125mL/hr Hospitalist ROS - Review of Systems Constitutional: reports: malaise. denies: fever, chills Eyes: denies: pain, vision change ENT: reports: nose congestion. denies: ear pain, nose pain, throat pain Respiratory: denies: cough, shortness of breath, hemoptysis, sputum Cardiovascular: denies: chest pain, light headedness Gastrointestinal: reports: nausea, vomiting (reports 1 episode of bloody vomit in the ER). denies: abdominal pain, diarrhea Genitourinary: denies: dysuria, hematuria Musculoskeletal: reports: other (no myalgias or arthralgias) Skin: denies: rash, lesions Neurological: denies: weakness, numbness Other: No vaginal bleeding or discharge - Medication Medications: none Hospitalist History - Past Medical History Source: patient Cardiac: reports: no pertinent history Pulmonary: reports: no pertinent history [place] [facility]: reports: no pertinent history Gastrointestinal: reports: no pertinent history Heme/Onc: reports: no pertinent history Hepatobiliary: reports: no pertinent history Psych: reports: no pertinent history Musculoskeletal: reports: no pertinent history Rheumatologic: reports: no pertinent history Infectious Disease: reports: no pertinent history ENT: reports: no pertinent history Renal/: reports: Other (h/o chlamydia infection in last ) Endocrine: reports: no pertinent history Dermatology: reports: no pertinent history Other Medical History: 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 history: #1: term with HTN in #2: term with HTN in - Past Surgical History Past Surgical History: reports: Tonsillectomy, Other (adenoidectomy) - Family History Family History: reports: no pertinent history - Social History Smoking Status: Never smoker Alcohol: reports: None Drugs: reports: none Living Situation: Friends (lives with a friend from [employer] with her 2 children currently) Occupation: works at [employer] Activity level: independent ambulation Other Social History: Reports she lived in an apartment with her 2 children but was kicked out due to her now ex-boyfriend who fathered her current . Is no longer with him but has no support other than friends in the area and is moving from house to house with friends with her 2 children. States she and her children are currently living with a friend from her [employer] group. - Exam General Appearance: NAD, awake alert Eye: anicteric sclera ENT: normocephalic atraumatic, moist mucosa Neck: supple Heart: RRR, no murmur, normal peripheral pulses Respiratory: CTAB, no wheezes, no rales, no ronchi, normal chest expansion, no tachypnea Gastrointestinal: soft, non-tender, non-distended, normal bowel sounds, no guarding, no rigidity Extremities: no edema Skin: normal turgor, no lesions, no rashes Neurological: cranial nerve grossly intact, no focal deficits Psychiatric: normal behavior, A&O x 3, oriented to person, oriented to place, oriented to time Psychiatric - other findings: sad affect Hospitalist Results - Labs Result Diagrams: 07/04/19 16:42 07/04/19 16:42 Lab results: WBC 7.2 thou/uL (4.8-10.8) 07/04/19 16:42 Hgb 13.9 g/dL (12.0-16.0) 07/04/19 16:42 Hct 41.2 % (36.0-47.0) 07/04/19 16:42 MCV 86.4 fL (78.0-98.0) 07/04/19 16:42 Plt Count 292 thou/uL (130-400) 07/04/19 16:42 Neutrophils % 62.9 % (42.0-75.0) 07/04/19 16:42 Sodium 136 mmol/L (136-145) 07/04/19 16:42 Potassium 3.8 mmol/L (3.5-5.1) 07/04/19 16:42 Chloride 106 mmol/L (98-107) 07/04/19 16:42 Carbon Dioxide 21 mmol/L (22-29) L 07/04/19 16:42 BUN 8 mg/dL (7.0-18.7) 07/04/19 16:42 Creatinine 0.80 mg/dL (0.6-1.1) 07/04/19 16:42 Glucose 89 mg/dL (70-105) 07/04/19 16:42 Lactic Acid 1.7 mmol/L (0.5-2.2) 07/04/19 17:30 Calcium 9.9 mg/dL (7.8-10.44) 07/04/19 16:42 Total Bilirubin 0.3 mg/dL (0.2-1.2) 07/04/19 16:42 AST 20 U/L (5-34) 07/04/19 16:42 ALT 17 U/L (8-55) 07/04/19 16:42 Alkaline Phosphatase 79 U/L (40-110) 07/04/19 16:42 Serum Total Protein 8.2 g/dL (6.0-8.3) 07/04/19 16:42 Albumin 4.9 g/dL (3.5-5.0) 07/04/19 16:42 Lipase 42 U/L (8-78) 07/04/19 16:42 Urine Ketones Negative mg/dL (Negative) 07/04/19 18:04 Urine Blood Negative (Negative) 07/04/19 18:04 Urine Nitrite Negative (Negative) 07/04/19 18:04 Ur Leukocyte Esterase 500 Bebeto/uL (Negative) A 07/04/19 18:04 Urine RBC 0-3 HPF (0-3) 07/04/19 18:04 Urine WBC 11-20 HPF (0-3) A 07/04/19 18:04 Ur Squamous Epith Cells 21-50 HPF (0-3) A 07/04/19 18:04 Urine Bacteria Rare-Few HPF (None Seen) 07/04/19 18:04 Additional comment: Iron level 297 - Radiology Interpretation Abdominal x-ray Status: image reviewed by me, report reviewed by me Additional Comment: No acute process. Other Status: image reviewed by me, report reviewed by me Additional Comment: 6.2 weeks sIUP w/ 1.37cm gestational sac noted but no pole or cardiac activity visible. No free fluid. Hospitalist H&P A/P - Problem (1) Iron product overdose Code(s): T45.4X1A - POISONING BY IRON AND ITS COMPOUNDS, ACCIDENTAL, INIT Status: Acute (2) and not yet delivered in first trimester Code(s): Z34.91 - ENCNTR FOR SUPRVSN OF NORMAL PREG, UNSP, FIRST TRIMESTER Status: Acute (3) Failed attempted Code(s): O07.4 - FAILED ATTEMPTED TERMINATION OF W/O COMPLICATION Status: Acute (4) Poor social situation Code(s): Z65.9 - PROBLEM RELATED TO UNSPECIFIED PSYCHOSOCIAL CIRCUMSTANCES Status: Acute - Plan Plan: 19YO @ ~6.2 WGA by 6.2 week mariam who presented for evaluation after attempting to abort her at home by taking excessive PNVs & B12. Iron Product Overdose: - Baseline labs WNLs with exception of iron level of 297. Poison control contacted in the ED & recommended recommended overnight monitoring & to contact them again should patient become symptomatic. A repeat serum Fe level at 21:30 was also done per poison control's recs and was lower at 216. - Will continue to monitor closely for signs/symptoms of acute iron poisoning with plans to continue IVFs overnight and get repeat labs in the AM. sIUP @ 6.2 WGA: - Aware, patient does not desire . Will consult CM for assistance in providing patient with appropriate resources should she choose to proceed with or continuing the since she is uninsured and essentially homeless. Attempted : - Patient denies any SI but will likely need [facility] clearance once deemed medically stable for discharge. - Will have a sitter remain with her overnight. Poor social situation: - See HPI and social history for more details. - Stat consult with CM placed on admission to provide patient with appropriate resources to give her the help and support she needs to get back on her feet to support herself and her children. Dispo: Admit for observation overnight with possible d/c home tomorrow pending likely need for an MHMR evaluation.
[2019-07-04] MEDS ORDERED: Ondansetron ODT 4 MG TAB PO PRN (22:19)
[2019-07-04] MEDS ORDERED: Acetaminophen 325 MG TAB PO PRN (22:27)
[2019-07-04 22:41] VITALS: BMI 28.7
[2019-07-05 05:38] LABS: #Eosinphils 0.2 thou/uL (0.0-0.7); #Lymphocytes 2.2 thou/uL (1.20-3.40); #Monocytes 0.5 thou/uL (0.11-0.59); #Neutrophils 3.8 thou/uL (1.40-6.50); %Basophils 0.5 % (0.0-1.0); %Eosinophils 2.3 % (0.0-10.0); %Lymphocytes 32.4 % (21.0-51.0); %Monocytes 7.4 % (0.0-10.0); %Neutrophils 57.4 % (42.0-75.0); Hemoglobin 11.9 g/dL (12.0-16.0); Mean Corpuscular HGB CONC 33.7 g/dL (32.0-36.0); Mean Corpuscular Hemoglobin 29.8 pg (27.0-31.0); Mean Corpuscular Volume 88.3 fL (78.0-98.0); Platelet Count 247 thou/uL (130-400); RBC Distribution Width 10.9 % (11.5-14.5); Red Blood Cell (RBC) Count 4.01 mill/uL (4.20-5.40); White Blood Cell (WBC) Count 6.7 thou/uL (4.8-10.8)
[2019-07-05 05:51] VITALS: BP 94/60; TEMP 98.8
[2019-07-05 06:07] LABS: ALT (SGPT) 15 U/L (8-55); AST (SGOT) 16 U/L (5-34); Albumin 3.5 g/dL (3.5-5.0); Alkaline Phosphatase 59 U/L (40-110); Anion Gap 8 mmol/L (10-20); BUN (Urea Nitrogen) 6 mg/dL (7.0-18.7); Bilirubin, Total 0.4 mg/dL (0.2-1.2); Calc. Creatinine Clearance 140 mL/min (70-130); Calcium 8.1 mg/dL (7.8-10.44); Carbon Dioxide 23 mmol/L (22-29); Chloride 110 mmol/L (98-107); Estimated GFR-MDRD Greater than 90; Globulin 2.3 g/dL (2.4-3.5); Glucose 80 mg/dL (70-105); Iron 68 ug/dL (50-170); Potassium 3.7 mmol/L (3.5-5.1); Protein, Total 5.8 g/dL (6.0-8.3); Sodium 137 mmol/L (136-145)
--- NOTE | 2019-07-05 08:32 | PDOC.BPN ---
- Brief Progress Note Rounded on patient at ~0745 and the patient stated she had to leave to hospital now. Explained to her that we could not force her to stay but that if she did it would be against medical advice. Patient proceeded to attempt to remove her IV and stated she was going to leave. Attending, Dr. Schultz, then stepped out of the room to talk with the patient's sitter who reported that just prior to our arrival that patient had been talking on the phone with her mother stating she "was going to kill this baby." Sitter also reported that the mother was suggesting other means by which to abort the . Due to her repetitive threats overheard by the sitter, and one attempt already that posed a threat to her life, we deemed the patient unsafe to leave the hospital prior to having a thorough psychiatric evaluation. Security was then contacted to attempt to keep the patient in her room until [facility] could come and evaluate her. [facility] was then contacted via the crisis hotline who stated they would notify a general surgeon to come by as soon as possible. Nurses stated that if the patient left despite having security present, they would call the police to locate the patient and return her to the hospital.
--- NOTE | 2019-07-05 08:56 | PDOC.BPN ---
- Brief Progress Note Went to assess patient at [address] Walker. Patient has left room by the time we arrived. Confirmed with nursing who told after discussion of R&B with Dr. Schultz/Milton patient wanted to leave AMA. Since patient was on suicide precaution police was called whom reportedly had done a safety screen after which she was released to go home. Per prior team there are several complicated social factors going on in patient's life with possible open CPS case which may have contributed her leaving AMA.
[2019-07-05] MEDS ORDERED: FLU VACC QS2019-20(6MOS UP)/PF 60 MCG/0.5 ML SYRINGE IM ONE (09:00)
== END 2019-07-05 08:20 | disposition left against medical advice (07) ==
LOC: ERS 16:15 → SJJU 21:55 → INTOOBSV 21:55
PROVIDERS: ADMIT Obstetrics & Gynecology; ATTEND Obstetrics & Gynecology
DX: O07.4 Failed attempted termination of pregnancy without complication (principal); O9A.211 Injury, poisoning and certain other consequences of external causes complicating pregnancy, first trimester; T45.2X2A Poisoning by vitamins, intentional self-harm, initial encounter; T45.4X2A Poisoning by iron and its compounds, intentional self-harm, initial encounter; R10.9 Unspecified abdominal pain; Z91.041 Radiographic dye allergy status; Z3A.01 Less than 8 weeks gestation of pregnancy; Z65.9 Problem related to unspecified psychosocial circumstances; Z53.29 Procedure and treatment not carried out because of patient's decision for other reasons
CPT/HCPCS: 36415; 74022; 76856; 80053; 80306; 80307; 81003; 81015; 83540; 83605; 83690; 84443; 84702; 85025; 93005; 96361; 96365; 96366; 96375; G0378; J2405; J2550

== ENCOUNTER 2019-12-22 12:54 | Day surgery (SDC) | payer OTHER ==
[2019-12-22 13:21] VITALS: BP 101/65; TEMP 98.8
[2019-12-22 13:22] VITALS: BMI 31.3
[2019-12-22] MEDS ORDERED: hydrALAZINE 20 MG/ML VIAL SLOW IVP PRN (14:18)
--- NOTE | 2019-12-22 14:31 | PDOC.FPRHP ---
- History of Present Illness Chief Complaint: Leaking fluid History of Present Illness: Pt is a 19 yo @ 29.6 wks by LMP (05/27/19) c/w with 1T US @ 13.0 wks who presents with an elevated blood pressure & leakage of fluid from [facility]. Pt says that her blood pressure is very variable. She had pre-E with severe features in her last . She said the leakage of fluid occurred about 4 days ago and has been throughout the day, where she has had to change 3-4x/d due to fluid. Dr. Hull said at [facility] she left a wet spot on the bed. She has a headache, which she says she has headaches normally. The headache is bi-temporal without tinnitus or v/c. She attributes the headache to lack of sleep. She has leg numbness in her left leg, which she has been having on and off. She denies any sexual intercourse. - Allergies/Adverse Reactions Allergies Allergy/AdvReac Type Severity Reaction Status Date / Time iodine Allergy Verified 12/22/19 13:23 - Home Medications Medication Instructions Recorded Confirmed Type Vitamin 1 tablet PO DAILY 10/08/18 12/22/19 History Acetaminophen [Tylenol Extra 500 mg PO PRN PRN 12/22/19 12/22/19 History Strength] - History PMHx: Allergic Rhinitis, Depression PSHx: Tonsillectomy & Adenoidectomy @ 10 yoa FHx: DM & HTN on paternal & maternal sides Social: No alcohol, tobacco, or recreational drugs. Lives with her grandmother. - Review of Systems General: denies: fever/chills Eyes: denies: vision changes ENT: denies: nasal congestion, rhinorrhea Respiratory: denies: cough, congestion, shortness of breath Cardiovascular: denies: chest pain Gastrointestinal: denies: nausea, vomiting, diarrhea, constipation, abdominal pain Genitourinary: reports: polyuria, discharge. denies: dysuria Skin: denies: rashes, lesions Musculoskeletal: reports: pain (in lower back), swelling (in left leg, hands, and feet) Neurological: reports: numbness (left leg) Psychological: reports: anxiety - Vital signs BP: 101/65 HR: 104 RR: 18 Tmax: 98.8 Pox: []% on [] Wt: 80.286 kg. - Physical Exam Constitutional: NAD, awake, alert and oriented HEENT: normocephalic and atraumatic, PERRLA, EOMI, conjunctiva clear Neck: supple, FROM Heart: RRR, normal S1/S2, no murmurs/rubs/gallops, pulses present, no edema Lungs: CTAB, no respiratory distress, good air movement, no rales/rhonchi, no wheezing Abdomen: soft, non-tender, bowel sounds present Musculoskeletal: normal structure, normal tone Neurological: no focal deficit, normal sensation -Neurological: Negative Nirav's Skin: no rash/lesions, good turgor Heme/Lymphatic: no unusual bruising or bleeding, no purpura, no petechia Psychiatric: normal mood and affect FMR H&P: A/P - Problem List (1) Leakage, amniotic fluid Current Visit: Yes Status: Acute Code(s): O42.90 - CONRAD ROM, 7TH0 BETW RUPT & ONST LABR, UNSP WEEKS OF GEST - Plan Pt is a 19 yo @ 29.6 wks by LMP (05/27/19) c/w with 1T US @ 13.0 wks who presents with an elevated blood pressure & leakage of fluid from PNC. 1. Leakage of Fluid 4 days * Amnisure: pending * Speculum: No fluid from cervical Os * Yellow thin discharge present with some thick white discharge as well * US: HIRAM- 16, Cervical Length- 3.1-3.5cm * low lying placenta 2. IUP Taking PNV * Flu: declined * NIPT: declined * Blood Type: B-, Ab: + 3. Anxiety & Depression Takes Hydroxyzine prn FMR H&P: Upper Level - Plan Date/Time: 12/22/19 1423 I, [], have evaluated this patient and agree with findings/plan as outlined by internal review and audit compliance resident. Pertinent changes/additions are listed here.
[2019-12-22 15:30] LABS: Amnisure Test No Membranes Rupture (No Rupture)
[2019-12-22 15:31] LABS: Amnisure Internal Control QC ACCEPTABLE (ACCEPTABLE)
--- NOTE | 2019-12-22 15:32 | ULT ---
LIMITED OB ULTRASOUND: HISTORY: Evaluate amniotic fluid index and cervix. Possible leaking amniotic fluid. FINDINGS: Single intrauterine gestation. Vertex presentation. heart tones with a rate of 139 b.p.m. Posterior placenta. Limited evaluation for the presence of absence of previa due to vertex presentation. There is shadow ing which limits the evaluation of the cervix. Visualized cervix measures between 3.1 and 3.5 cm. A mniotic fluid index is 16.8 cm. IMPRESSION: 1. Cervical length that is at the lower limits of normal. 2. Amniotic fluid index is 16.8 cm. Results of the study were discussed with the patient's nurse, Smitha, 12/22/2019 at 3:07 p.m. CODE CR POS: PPP
--- NOTE | 2019-12-22 15:38 | PDOC.FPROB ---
FMR OB H&P: HPI - History of Present Illness Chief Complaint: Leakage of Fluid History of Present Illness: Pt is a 19 yo @ 29.6 wks by LMP (05/27/19) c/w with 1T US @ 13.0 wks who presents with an elevated blood pressure & leakage of fluid from [facility]. Pt says that her blood pressure is very variable. She had pre-E with severe features in her last . She said the leakage of fluid occurred about 4 days ago and has been throughout the day, where she has had to change 3-4x/d due to fluid. Dr. Hull said at [facility] she left a wet spot on the bed. She has a headache, which she says she has headaches normally. The headache is bi-temporal without tinnitus or v/c. She attributes the headache to lack of sleep. She has leg numbness in her left leg, which she has been having on and off. She denies any sexual intercourse. Primary Care Physician: [facility]- Dr. Britt FMR OB H&P: Current - Care : 4 Para: 1112 Gestational age: 29.6 Due date: 03/02/2020 Dating Criteria: LMP c/w 13 wk US - OB Labs Blood type: B RH: negative Antibody Screen: negative HIV: negative RPR: negative HepBsAg: negative Rubella: immune Gonorrhea: negative Chlamydia: negative Pap Smear: NILM 09/2019 1 hour gtt: 134 H&H: 11.9/34.3 Platelets: 243 FMR OB H&P: History - Past Medical History PMH: Allergic Rhinitis, Depression - OB History OB History: 2 Pregnancies: 1- 36 wks, 2017 & 2- 2019 with Severe Pre-E Spontaneous : 07/06 @ 6 wks - TRAUMA DIRECTOR History TRAUMA DIRECTOR History: NILM 09/2019 - Surgical History Sx History: Tonsillectomy & Adenoidectomy @ 10 yoa - Social History Social History: DM & HTN on paternal & maternal sides - Family History Family History: No alcohol, tobacco, or recreational drugs. Lives with her grandmother. FMR OB H&P: Medications - Current Home Medications: Medication Instructions Recorded Confirmed Type Vitamin 1 tablet PO DAILY 10/08/18 12/22/19 History Acetaminophen [Tylenol Extra 500 mg PO PRN PRN 12/22/19 12/22/19 History Strength] metroNIDAZOLE [Metronidazole] 500 mg PO BID 7 Days #14 tab 12/22/19 Rx Allergies/Adverse Reactions: Allergies Allergy/AdvReac Type Severity Reaction Status Date / Time iodine Allergy Verified 12/22/19 13:23 FMR OB H&P: ROS - Review of Systems General: denies: fever/chills Eyes: denies: vision changes, double vision, scotomas ENT: denies: nasal congestion, rhinorrhea, sore throat Cardiovascular: denies: chest pain, edema Respiratory: denies: cough, congestion, shortness of breath Gastrointestinal: denies: abdominal pain, nausea, vomiting, diarrhea, constipation Genitourinary (Female): reports: polyuria, vaginal discharge. denies: dysuria Musculoskeletal: reports: pain (lower back pain) Neurologic: reports: numbness (left leg) Integumentary: denies: itching, rash Hematologic/Lymphatic: denies: prolonged or excessive bleeding, enlarged lymph nodes Psychological: reports: anxiety FMR OB H&P: Vital Signs - Maternal Vital signs: Vital Signs - First Documented Temp Pulse Resp BP 98.8 F 116 H 18 101/65 12/22/19 13:15 12/22/19 13:15 12/22/19 13:15 12/22/19 13:15 - Heart Tones Baseline: 140 Variability: moderate Acceleration: present Deceleration: absent Category: category 1 FMR OB H&P: Physical Exam - Physical Exam General: NAD, awake, alert and oriented HEENT: normocephalic and atraumatic, PERRLA, EOMI, conjunctiva clear, no scleral icterus Neck: supple, FROM Heart: RRR, normal S1/S2, no murmurs/rubs/gallops, pulses present, no edema General: CTAB, no respiratory distress, good air movement, no rales/rhonchi, no wheezing Abdomen: soft, gravid, bowel sound present Musculoskeletal: pulses present, FROM in all four extremities Neurological: no focal deficit Deviation from normal: Negative Nirav's Skin: no rash, good tugor Lymphatic: no unusual bruising or bleeding, no purpura, no petechia Psychiatric: normal mood and affect FMR OB H&P: Results - Labs Lab results: Laboratory Results - last 24 hr 12/22/19 15:02 Amnio Swab Test No Membranes Rupture FMR OB H&P: A/P - Problem List (1) Leakage, amniotic fluid Status: Acute Code(s): O42.90 - CONRAD ROM, 7TH0 BETW RUPT & ONST LABR, UNSP WEEKS OF GEST (2) Third trimester Status: Acute Code(s): Z34.93 - ENCNTR FOR SUPRVSN OF NORMAL PREG, UNSP, THIRD TRIMESTER (3) Lumbar radiculopathy Status: Acute Code(s): M54.16 - RADICULOPATHY, LUMBAR REGION (4) History of labor Status: Acute Code(s): Z87.51 - PERSONAL HISTORY OF PRE-TERM LABOR (5) Major depression, chronic Status: Acute Code(s): F32.9 - MAJOR DEPRESSIVE DISORDER, SINGLE EPISODE, UNSPECIFIED (6) Rh negative status during Status: Acute Code(s): O26.899 - OTH RELATED CONDITIONS, UNSPECIFIED TRIMESTER; Z67.91 - UNSPECIFIED BLOOD TYPE, RH NEGATIVE (7) Yeast infection Status: Acute Code(s): B37.9 - CANDIDIASIS, UNSPECIFIED (8) Elevated BP without diagnosis of hypertension Status: Acute Code(s): R03.0 - ELEVATED BLOOD-PRESSURE READING, W/O DIAGNOSIS OF HTN Disposition: Pt is a 19 yo @ 29.6 wks by LMP (05/27/19) c/w with 1T US @ 13.0 wks who presents with an elevated blood pressure & leakage of fluid from PNC. 1. Leakage of Fluid 4 days * Amnisure: pending * Speculum: No fluid from cervical Os * Yellow thin discharge present with some thick white discharge as well * US: HIRAM- 16, Cervical Length- 3.1-3.5cm * low lying placenta * VP3: + BV & [facility] * Will send in [facility] * Recently treated at [facility] 2. IUP Taking PNV * Flu: declined * NIPT: declined * Blood Type: B-, Ab: + * Rhogam: 12/09/2019 * 3. Anxiety & Depression Takes Hydroxyzine prn 4. Yeast infection VP3 in clinic + Yeast * Clotrimazole per vagina 5. Hx of Pre-term Delivery * [place]: Declined 6. Lumbar Radiculopathy in Sciatic Distribution * Discussed using belly band to help * Tylenol prn for pain 7. Hx of Severe Pre-E * MD Aware 8. Elevated BP without HTN BP: 141/73 in clinic today * BPs here: 90-110s/50-70s Dispo: D/c home with Metronidazole for BV. She has been recently treated for yeast with [facility]. F/u with PNC as indicated. Discussion: Date/Time: 12/22/19 3195 This H&P was discussed with [] and [] who agree with the above documentation and plan. Addendum - Attending - Attending Attestation Date/Time: 12/23/19 3939 I personally evaluated the patient and discussed the management with Dr. Soto I agree with the History, Examination, Assessment and Plan documented above with any addition or exceptions noted below.
== END 2019-12-22 16:48 | disposition home or self-care (01) ==
LOC: L&D/OP 12:54
PROVIDERS: ATTEND Obstetrics & Gynecology
DX: O99.89 Other specified diseases and conditions complicating pregnancy, childbirth and the puerperium (principal); R03.0 Elevated blood-pressure reading, without diagnosis of hypertension; N89.8 Other specified noninflammatory disorders of vagina; M54.16 Radiculopathy, lumbar region; O98.813 Other maternal infectious and parasitic diseases complicating pregnancy, third trimester; B37.3 Candidiasis of vulva and vagina; O23.593 Infection of other part of genital tract in pregnancy, third trimester; B96.89 Other specified bacterial agents as the cause of diseases classified elsewhere; O09.213 Supervision of pregnancy with history of pre-term labor, third trimester; O09.293 Supervision of pregnancy with other poor reproductive or obstetric history, third trimester; O99.343 Other mental disorders complicating pregnancy, third trimester; F41.9 Anxiety disorder, unspecified; F32.9 Major depressive disorder, single episode, unspecified; Z3A.29 29 weeks gestation of pregnancy; Z88.8 Allergy status to other drugs, medicaments and biological substances
CPT/HCPCS: 76815; 84112; 87480; 87510; 87660

== ENCOUNTER 2019-12-23 13:38 | Day surgery (SDC) | payer OTHER ==
[2019-12-23 13:53] VITALS: BMI 31.3
[2019-12-23] MEDS ORDERED: hydrALAZINE 20 MG/ML VIAL SLOW IVP PRN (13:54)
--- NOTE | 2019-12-23 13:58 | PDOC.FPROB ---
FMR OB H&P: HPI - History of Present Illness Chief Complaint: Leakage of Fluid History of Present Illness: Pt is a 19 yo @ 30.0 wks by LMP (05/27/19) c/w with 1T US @ 13.0 wks who presents with leakage of fluid. She has had leakage of fluid for the past 5 days ago that has been throughout the day, where she has had to change clothes for 3-4x/d due to fluid and she cannot wear anything at night due to fluid leakage. She was seen yesterday at [facility] by Dr. Hull who said she left a wet spot on the bed. She denies any sexual intercourse this . She has a headache that she has had since her visit yesterday. She has not taken any medication. The headache is bi-temporal without tinnitus or v/c. [facility] H&P: Current - Care : 4 Para: 1112 Gestational age: 30.0 Due date: 03/02/2020 Dating Criteria: LMP c/w 13.0 wk US - OB Labs Blood type: B RH: negative Antibody Screen: negative HIV: negative RPR: negative HepBsAg: negative Rubella: immune Gonorrhea: negative Chlamydia: negative Pap Smear: NILM 09/2019 1 hour gtt: 134 H&H: 11.9/34.3 Platelets: 243 FMR OB H&P: History - Past Medical History PMH: Allergic Rhinitis, Depression - OB History OB History: 2 Pregnancies: 1- 36 wks, 2017 & 2- 2019 with Severe Pre-E Spontaneous : 07/06 @ 6 wks - PHARMACEUTICAL SALESPERSON History PHARMACEUTICAL SALESPERSON History: NILM 09/2019 - Surgical History Sx History: Tonsillectomy & Adenoidectomy @ 10 yoa - Social History Social History: DM & HTN on paternal & maternal sides - Family History Family History: No alcohol, tobacco, or recreational drugs. Lives with her grandmother. FMR OB H&P: Medications - Current Home Medications: Medication Instructions Recorded Confirmed Type Vitamin 1 tablet PO DAILY 10/08/18 12/22/19 History Acetaminophen [Tylenol Extra 500 mg PO PRN PRN 12/22/19 12/22/19 History Strength] metroNIDAZOLE [Metronidazole] 500 mg PO BID 7 Days #14 tab 12/22/19 Rx Allergies/Adverse Reactions: Allergies Allergy/AdvReac Type Severity Reaction Status Date / Time iodine Allergy Verified 12/23/19 13:51 FMR OB H&P: ROS - Review of Systems General: denies: fever/chills Eyes: denies: vision changes ENT: denies: nasal congestion, rhinorrhea, sore throat Cardiovascular: denies: chest pain Respiratory: denies: cough, congestion, shortness of breath Gastrointestinal: reports: cramping. denies: abdominal pain, bloating, nausea, vomiting, diarrhea, constipation Genitourinary (Female): reports: polyuria, vaginal discharge. denies: vaginal bleeding Musculoskeletal: denies: pain, tenderness Neurologic: denies: numbness, weakness Integumentary: denies: rash, lesions Hematologic/Lymphatic: denies: prolonged or excessive bleeding, enlarged lymph nodes Psychological: reports: anxiety FMR OB H&P: Vital Signs - Maternal Vital signs: BP: 111/68 HR: 104 O2: 96% on RA T: 97.8 - Heart Tones Baseline: 140 Variability: moderate Acceleration: present Deceleration: absent Category: category 1 FMR OB H&P: Physical Exam - Physical Exam General: NAD, awake, alert and oriented HEENT: normocephalic and atraumatic, conjunctiva clear, no scleral icterus Neck: supple, FROM Heart: RRR, normal S1/S2, no murmurs/rubs/gallops, pulses present, no edema General: CTAB, no respiratory distress, good air movement, no rales/rhonchi, no wheezing, no retractions Abdomen: soft, gravid, bowel sound present Neurological: no clonus, no focal deficit Skin: no rash, good tugor Lymphatic: no unusual bruising or bleeding, no purpura, no petechia, no LAD Psychiatric: normal mood and affect FMR OB H&P: A/P - Problem List (1) History of labor Current Visit: No Status: Acute Code(s): Z87.51 - PERSONAL HISTORY OF PRE- TERM LABOR (2) Leakage, amniotic fluid Current Visit: No Status: Acute Code(s): O42.90 - CONRAD ROM, 7TH0 BETW RUPT & ONST LABR, UNSP WEEKS OF GEST (3) Lumbar radiculopathy Current Visit: No Status: Acute Code(s): M54.16 - RADICULOPATHY, LUMBAR REGION (4) Major depression, chronic Current Visit: No Status: Acute Code(s): F32.9 - MAJOR DEPRESSIVE DISORDER, SINGLE EPISODE, UNSPECIFIED (5) Rh negative status during Current Visit: No Status: Acute Code(s): O26.899 - OTH RELATED CONDITIONS, UNSPECIFIED TRIMESTER; Z67.91 - UNSPECIFIED BLOOD TYPE, RH NEGATIVE (6) Third trimester Current Visit: No Status: Acute Code(s): Z34.93 - ENCNTR FOR SUPRVSN OF NORMAL PREG, UNSP, THIRD TRIMESTER (7) Yeast infection Current Visit: No Status: Acute Code(s): B37.9 - CANDIDIASIS, UNSPECIFIED Disposition: Pt is a 19 yo @ 29.6 wks by LMP (05/27/19) c/w with 1T US @ 13.0 wks who presents with an elevated blood pressure & leakage of fluid from PNC. 1. Leakage of Fluid 5 days * Amnisure: Negative * Speculum: Yellow thin discharge, but no pooling on exam * Yesterday's US: HIRAM- 16, Cervical Length- 3.1-3.5cm * low lying placenta * Yesterday's VP3: + BV & [facility] * Sent Metro * Recently treated at [facility] 2. IUP Taking PNV * Flu: declined * NIPT: declined * Blood Type: B-, Ab: + * Rhogam: 12/09/2019 3. Anxiety & Depression Takes Hydroxyzine prn 4. Yeast infection VP3 in clinic + Yeast * Clotrimazole per vagina 5. Hx of Pre-term Delivery * Nirmala: Declined 6. Lumbar Radiculopathy in Sciatic Distribution * Discussed using belly band to help * Tylenol prn for pain 7. Hx of Severe Pre-E * MD Aware 8. Elevated BP without HTN BP:111/68 today Dispo: D/c home. F/u at PNC as indicated. Recommended Kegel exercises, finishing Abx, and wearing a pad. Discussion: Date/Time: 12/23/19 6460 This H&P was discussed with [] and [] who agree with the above documentation and plan. Addendum - Attending - Attending Attestation Date/Time: 12/23/19 3609 I personally evaluated the patient and discussed the management with Dr. Soto. I agree with the History, Examination, Assessment and Plan documented above. Neg SROM exam, neg amnisure. Dx with BV yesterday, encouraged to take antibiotic. D/c home.
[2019-12-23] MEDS ORDERED: Acetaminophen 500 MG TAB PO SCH (14:15)
[2019-12-23 15:00] LABS: Amnisure Test No Membranes Rupture (No Rupture)
[2019-12-23 15:01] LABS: Amnisure Internal Control QC ACCEPTABLE (ACCEPTABLE)
== END 2019-12-23 15:08 | disposition home or self-care (01) ==
LOC: L&D/OP 13:38
DX: O99.89 Other specified diseases and conditions complicating pregnancy, childbirth and the puerperium (principal); N89.8 Other specified noninflammatory disorders of vagina; R51 Headache; M54.16 Radiculopathy, lumbar region; O98.813 Other maternal infectious and parasitic diseases complicating pregnancy, third trimester; B37.3 Candidiasis of vulva and vagina; O23.593 Infection of other part of genital tract in pregnancy, third trimester; B96.89 Other specified bacterial agents as the cause of diseases classified elsewhere; O99.343 Other mental disorders complicating pregnancy, third trimester; F41.9 Anxiety disorder, unspecified; F32.9 Major depressive disorder, single episode, unspecified; O09.213 Supervision of pregnancy with history of pre-term labor, third trimester; Z79.899 Other long term (current) drug therapy; Z3A.30 30 weeks gestation of pregnancy; Z88.8 Allergy status to other drugs, medicaments and biological substances
CPT/HCPCS: 84112; 99284

== ENCOUNTER 2019-12-26 15:40 | Observation (INO) | payer OTHER ==
[2019-12-26 16:03] VITALS: BMI 31.3
[2019-12-26] MEDS ORDERED: hydrALAZINE 20 MG/ML VIAL SLOW IVP PRN ×2 (16:57)
[2019-12-26] MEDS ORDERED: Promethazine HCl 25 MG/ML VIAL IM PRN (16:57)
[2019-12-26] MEDS ORDERED: Ondansetron PF 4 MG/2 ML Vial IVP PRN (16:57)
[2019-12-26] MEDS ORDERED: Docusate 100 MG CAP PO PRN (16:57)
--- NOTE | 2019-12-26 17:21 | PDOC.FPROB ---
FMR OB H&P: HPI - History of Present Illness Chief Complaint: Vaginal Bleeding History of Present Illness: 25 yo @ 30.2 wks by LMP c/w 13.0 wk US who presents for vaginal bleeding. She was here twice earlier this week. She had fluid leaking. Her amnisure and speculum exam were negative. She finished a course of Clotrimazole on Sunday and VP3 showed [facility] and BV, so we sent her in some Metronidazole that day. She came back the next day for the fluid as well. It was negative as before. It was determined it was likely from infection. She said after the speculum exam on Sunday she had light spotting. She said she had contractions that started last night and were 5-20 minutes a part. She soaked through a pad today and she ran out so she had to use a wash cloth. She called [facility] @ 2:30 pm and they told her to come in. She called EMS and was brought in. Primary Care Physician: [facility]- Dr. Britt FMR OB H&P: Current - Care : 4 Para: 1112 Gestational age: 30.0 Due date: 03/02/2020 Dating Criteria: LMP c/w 13.0 wk US - OB Labs Blood type: B RH: negative Antibody Screen: negative HIV: negative RPR: negative HepBsAg: negative Rubella: immune Gonorrhea: negative Chlamydia: negative Pap Smear: NIL 09/2019 1 hour gtt: 134 H&H: 11.9/34.3 Platelets: 243 FMR OB H&P: History - Past Medical History PMH: Allergic Rhinitis, Depression - OB History OB History: 2 Pregnancies: 1- 36 wks, 2017 & 2- 2019 with Severe Pre-E Spontaneous : 07/06 @ 6 wks - URGENT CARE PHYSICIAN History URGENT CARE PHYSICIAN History: NILM 09/2019 - Surgical History Sx History: Tonsillectomy & Adenoidectomy @ 10 yoa - Social History Social History: DM & HTN on paternal & maternal sides - Family History Family History: No alcohol, tobacco, or recreational drugs. Lives with her grandmother. FMR OB H&P: Medications - Current Home Medications: Medication Instructions Recorded Confirmed Type Vitamin 1 tablet PO DAILY 10/08/18 12/26/19 History metroNIDAZOLE [Metronidazole] 500 mg PO BID 7 Days #14 tab 12/22/19 12/26/19 Rx Allergies/Adverse Reactions: Allergies Allergy/AdvReac Type Severity Reaction Status Date / Time iodine Allergy Verified 12/26/19 16:08 FMR OB H&P: ROS - Review of Systems General: denies: fever/chills Eyes: denies: vision changes ENT: denies: nasal congestion, rhinorrhea Cardiovascular: denies: chest pain, edema Respiratory: denies: cough, congestion Gastrointestinal: denies: abdominal pain, nausea, vomiting, diarrhea, constipation Genitourinary (Female): reports: vaginal discharge, vaginal bleeding, contractions. denies: dysuria, vaginal pain Musculoskeletal: denies: pain, tenderness Neurologic: denies: numbness, weakness, headache Integumentary: denies: rash Hematologic/Lymphatic: denies: prolonged or excessive bleeding, enlarged lymph nodes Psychological: reports: anxiety FMR OB H&P: Vital Signs - Maternal Vital signs: Vital Signs - First Documented Temp Pulse Resp BP 98.2 F 111 H 18 114/73 12/26/19 16:02 12/26/19 16:02 12/26/19 16:02 12/26/19 16:02 - Heart Tones Baseline: 140 Variability: moderate Acceleration: present Deceleration: absent Category: category 1 [place] contractions every: 5-10 minutes FMR OB H&P: Physical Exam - Physical Exam General: NAD, awake, alert and oriented HEENT: normocephalic and atraumatic, MMM, conjunctiva clear, no scleral icterus , oropharynx clear Neck: supple, FROM Heart: RRR, normal S1/S2, no murmurs/rubs/gallops, pulses present, no edema General: CTAB, no respiratory distress, good air movement, no rales/rhonchi, no wheezing, no retractions Abdomen: soft, gravid, bowel sound present Musculoskeletal: normal gait and station, FROM in all four extremities Neurological: no focal deficit Skin: no rash, good tugor Lymphatic: no unusual bruising or bleeding, no purpura, no petechia Psychiatric: normal mood and affect - Pelvic Exam Vulva: normal hair distribution, no masses, no lesions Deviation from normal: blood present FMR OB H&P: A/P - Problem List (1) Vaginal bleeding Current Visit: Yes Status: Acute Code(s): N93.9 - ABNORMAL UTERINE AND VAGINAL BLEEDING, UNSPECIFIED (2) Bacterial vaginosis Current Visit: Yes Status: Acute Code(s): N76.0 - ACUTE VAGINITIS; B96.89 - OTH BACTERIAL AGENTS THE CAUSE OF DISEASES CLASSD ELSWHR (3) History of labor Current Visit: No Status: Acute Code(s): Z87.51 - PERSONAL HISTORY OF PRE- TERM LABOR (4) Yeast infection Current Visit: No Status: Acute Code(s): B37.9 - CANDIDIASIS, UNSPECIFIED (5) Third trimester Current Visit: No Status: Acute Code(s): Z34.93 - ENCNTR FOR SUPRVSN OF NORMAL PREG, UNSP, THIRD TRIMESTER (6) Elevated BP without diagnosis of hypertension Current Visit: No Status: Acute Code(s): R03.0 - ELEVATED BLOOD-PRESSURE READING, W/O DIAGNOSIS OF HTN (7) Rubella non-immune status, antepartum Current Visit: No Status: Acute Code(s): O99.89 - OTH DISEASES AND CONDITIONS COMPL PREG/CHLDBRTH; Z28.3 - UNDERIMMUNIZATION STATUS (8) Lumbar radiculopathy Current Visit: No Status: Acute Code(s): M54.16 - RADICULOPATHY, LUMBAR REGION (9) Major depression, chronic Current Visit: No Status: Acute Code(s): F32.9 - MAJOR DEPRESSIVE DISORDER, SINGLE EPISODE, UNSPECIFIED Disposition: Pt is a 19 yo @ 30.2 wks by LMP (05/27/19) c/w with 1T US @ 13.0 wks who presents with an elevated blood pressure & leakage of fluid from PNC. 1. Vaginal Bleeding Soaked a pad and wash cloth has blood * Speculum Exam: dark blood * Looks like recent bleed * Ultrasound order * Will evaluate cervical length, baby's position, weight, and placenta placement and features * UDS, UA with micro, Type and screen, & Hemagram * Will give Betamethasone after US * LR @ 100 * Continuous monitoring * Contractions every 5-10 minutes * FHT: 140s, accels, no decels, mod variability 2. Leakage of Fluid, Improving * Amnisure: Negative * Speculum: Yellow thin discharge, but no pooling on exam * 12/21- US: HIRAM- 16, Cervical Length- 3.1-3.5cm * low lying placenta * 5/4- VP3: + BV & [facility] * Currently taking Metro for BV 3. IUP Taking PNV * Flu: declined * NIPT: declined * Blood Type: B-, Ab: + * Rhogam: 12/09/2019 4. Anxiety & Depression Takes Hydroxyzine prn 5. Hx of Pre-term Delivery * Nirmala: Declined 6. Lumbar Radiculopathy in Sciatic Distribution * Discussed using belly band to help * Tylenol prn for pain 7. Hx of Severe Pre-E * MD Aware 8. Elevated BP without HTN BP:111/68 today Dispo: Admit to obs for vaginal bleeding. LOS <48H. Will work up for possible causes. Discussion: Date/Time: 12/26/19 9994 This H&P was discussed with [] and [] who agree with the above documentation and plan. Addendum - Attending - Attending Attestation Date/Time: 12/26/19 5016 I personally evaluated the patient and discussed the management with Dr. Soto I agree with the History, Examination, Assessment and Plan documented above with any addition or exceptions noted below.
[2019-12-26] MEDS ORDERED: Betamet Acet/Betamet Na Ph 30 MG/5 ML VIAL ONE (17:42)
[2019-12-26] MEDS ORDERED: Betamet Acet/Betamet Na Ph 30 MG/5 ML VIAL IM SCH (18:00)
--- NOTE | 2019-12-26 18:14 | ULT ---
Obstetric sonogram Limited HISTORY: Evaluate for cervical length, placental location, and position. FINDINGS: Single intrauterine gestation in cephalic presentation. Grade 1 placenta is posterior. Cerv ix is closed and 3.6 cm. No evidence of previa. Heart motion at 145 bpm. Amniotic fluid index 15.5. IMPRESSION : Posterior placenta. HIRAM 15.5. Cervix 3.6 cm.
[2019-12-26] MEDS: Lactated Ringer's 1,000 ML IV SCH (18:15)
[2019-12-26 18:35] LABS: Hemoglobin 12.3 g/dL (12.0-16.0); Mean Corpuscular HGB CONC 33.6 g/dL (32.0-36.0); Mean Corpuscular Hemoglobin 28.5 pg (27.0-31.0); Mean Corpuscular Volume 84.8 fL (78.0-98.0); Platelet Count 222 thou/uL (130-400); RBC Distribution Width 11.2 % (11.5-14.5); Red Blood Cell (RBC) Count 4.32 mill/uL (4.20-5.40)
[2019-12-26 18:40] LABS: Bacteria/HPF None Seen HPF (None Seen); Bilirubin Negative (Negative); Blood, Urine Negative (Negative); Clarity Clear (Clear); Glucose, Urine (Dipstick) Normal (Negative); Leukocyte 25 Leu/uL (Negative); Nitrite Negative (Negative); Protein, Urine (Dipstick) Negative (Neg-Trace); RBC/HPF 0-3 HPF (0-3); Squamous Epithelial 0-3 HPF (0-3); Urobilinogen Normal mg/dL (Less than 2); WBC/HPF 0-3 HPF (0-3)
[2019-12-26 18:49] LABS: Amphetamine Not Detected (NotDetected); Barbiturates Screen Not Detected (NotDetected); Benzodiazepine Screen Not Detected (NotDetected); Cocaine Metabolite Screen Not Detected (NotDetected); Medtox Control Line Valid? VALID (VALID); Medtox Reader # READER 4; Methadone Not Detected (NotDetected); Methamphetamine Not Detected (NotDetected); Opiate Screen Not Detected (NotDetected); Oxycodone Screen Not Detected (NotDetected); Phencyclidine (PCP) Not Detected (NotDetected); THC/Cannabinoid Screen Not Detected (NotDetected); Tricyclic Screen Not Detected (NotDetected)
--- NOTE | 2019-12-26 19:08 | PDOC.BPN ---
<Humza Soto - Last Filed: 12/26/19 19:10> - Brief Progress Note S: Pt is doing well, has had 1 contraction in past 30 minutes, good movement, scant vaginal spotting, no LOF. O: VSS, comfortable, NAD OB US: Grade 1 posterior placenta, HIRAM 15.5, Cervix closed, Cervical length 3.6cm UDS neg UA clean Hb 12.3 Reassuring FHT, baseline 130, occasional contraction A/P: Pt is a 19 yo @ 30.3 wks by LMP c/w with 13.0wk sono presents with an elevated blood pressure & leakage of fluid from PNC. 1. Vaginal Bleeding Soaked a pad and wash cloth with blood * Speculum Exam at admission: dark blood * Ultrasound * Cephalic, Grade 1 posterior placenta, HIRAM 15.5, cervix 3.6cm and closed. * UDS neg, UA clean. Hb 12.3 * Betamethasone given, repeat in 24 hours for 2 total doses * LR @ 100cc/hr * Continuous monitoring * Contractions spaced out, reassuring FHT 2. Leakage of Fluid, Improving * Amnisure: Negative * Speculum: Yellow thin discharge, but no pooling on exam * 12/21- US: HIRAM- 16, Cervical Length- 3.1-3.5cm * low lying placenta * 12/21- VP3: + BV & [facility] * Currently taking Metro for BV, will cont 3. IUP Taking PNV * Flu: declined * NIPT: declined * Blood Type: B-, Ab: + * Rhogam: 12/09/2019 4. Anxiety & Depression Takes Hydroxyzine prn 5. Hx of Pre-term Delivery * Nirm[facility]: Declined 6. Lumbar Radiculopathy in Sciatic Distribution * Discussed using belly band to help * Tylenol prn for pain 7. Hx of Severe Pre-E * MD Aware * BP WNL during this presentation thus far Dispo: Admit for obs 2/2 vaginal bleeding. No placenta previa on US. Will give steroids for lung maturity and monitor FHT, bleeding, and contractions. <Charly Walker - Last Filed: 12/26/19 23:50> Addendum - Attending - Attending Attestation Date/Time: 12/26/19 5006 I personally evaluated the patient and discussed the management with Dr. Soto I agree with the History, Examination, Assessment and Plan documented above with any addition or exceptions noted below. Pt seen by myself this evening. Bleeding has significantly reduced to scant spotting. Pt was without compaints. s/p bmtz x1 CL 3.6cm. AFI15, placenta posterior- unable to comment on placental/cervical relationships. anticipate d/x tomorrow after 2nd dose of bmtz
[2019-12-26] MEDS: metroNIDAZOLE 500 MG TAB PO SCH (21:15)
[2019-12-27] MEDS: Lactated Ringer's 1,000 ML IV SCH ×2 (06:07→11:50)
--- NOTE | 2019-12-27 06:46 | PDOC.OBAPN ---
FMR OB AP PN: Sub - Interval History Hospital Day: 1 Chief Complaint: Vaginal Bleeding Interval History: Pt has vaginal bleeding that is resolving FMR OB AP PN: Obj - Maternal Vital signs: BP: 102/49-119/62 HR: 97-111 RR: 16-18 Tmax: 98-98.7 Pox: 98% on RA Wt: 80 FMR OB AP PN: Exam - Physical Exam General: NAD, awake, alert and oriented HEENT: normocephalic and atraumatic, MMM, conjunctiva clear, no scleral icterus Neck: supple, FROM Heart: RRR, normal S1/S2, no murmurs/rubs/gallops, pulses present, no edema General: CTAB, no respiratory distress, good air movement, no rales/rhonchi, no wheezing, no retractions Abdomen: soft, gravid, bowel sound present Musculoskeletal: normal gait and station, pulses present, FROM in all four extremities Neurological: no focal deficit Skin: no rash, good tugor, no jaundice Lymphatic: no unusual bruising or bleeding, no purpura, no petechia, no LAD Psychiatric: normal mood and affect R OB AP PN: Data - Labs Lab results: Laboratory Results - last 24 hr 12/26/19 12/26/19 12/26/19 18:11 18:11 18:11 WBC 7.0 RBC 4.32 Hgb 12.3 Hct 36.7 MCV 84.8 MCH 28.5 MCHC 33.6 RDW 11.2 L Plt Count 222 MPV 7.0 L Urine Color Light-Yellow Urine Clarity Clear Urine pH 7.0 Ur Specific [place] 1.012 Urine Protein Negative Urine Glucose (UA) Normal Urine Ketones Negative Urine Blood Negative Urine Nitrite Negative Urine Bilirubin Negative Urine Urobilinogen Normal Ur Leukocyte Esterase 25 Urine RBC 0-3 Urine WBC 0-3 Ur Squamous Epith Cells 0-3 Urine Bacteria None Seen Urine Opiates Screen Ur Oxycodone Screen Urine Methadone Screen Ur Propoxyphene Screen Ur Barbiturates Screen Ur Tricyclics Screen Ur Phencyclidine Scrn Ur Amphetamines Screen U Methamphetamines Scrn U Benzodiazepines Scrn U Cocaine Metab Screen U Cannabinoids Screen Drug Screen Comment Blood Type B NEGATIVE Antibody Screen POSITIVE H Antibody Identification ANTI-D DUE TO RHOGAM INJECTION 12/26/19 18:11 WBC RBC Hgb Hct MCV MCH MCHC RDW Plt Count MPV Urine Color Urine Clarity Urine pH Ur Specific [place] Urine Protein Urine Glucose (UA) Urine Ketones Urine Blood Urine Nitrite Urine Bilirubin Urine Urobilinogen Ur Leukocyte Esterase Urine RBC Urine WBC Ur Squamous Epith Cells Urine Bacteria Urine Opiates Screen Not Detected Ur Oxycodone Screen Not Detected Urine Methadone Screen Not Detected Ur Propoxyphene Screen Not Detected Ur Barbiturates Screen Not Detected Ur Tricyclics Screen Not Detected Ur Phencyclidine Scrn Not Detected Ur Amphetamines Screen Not Detected U Methamphetamines Scrn Not Detected U Benzodiazepines Scrn Not Detected U Cocaine Metab Screen Not Detected U Cannabinoids Screen Not Detected Drug Screen Comment Blood Type Antibody Screen Antibody Identification FMR OB AP PN: A/P - Problem List (1) Vaginal bleeding Status: Acute Code(s): N93.9 - ABNORMAL UTERINE AND VAGINAL BLEEDING, UNSPECIFIED (2) Bacterial vaginosis Status: Acute Code(s): N76.0 - ACUTE VAGINITIS; B96.89 - OTH BACTERIAL AGENTS THE CAUSE OF DISEASES CLASSD ELSWHR (3) History of labor Status: Acute Code(s): Z87.51 - PERSONAL HISTORY OF PRE-TERM LABOR (4) Yeast infection Status: Acute Code(s): B37.9 - CANDIDIASIS, UNSPECIFIED (5) Third trimester Status: Acute Code(s): Z34.93 - ENCNTR FOR SUPRVSN OF NORMAL PREG, UNSP, THIRD TRIMESTER (6) Elevated BP without diagnosis of hypertension Status: Acute Code(s): R03.0 - ELEVATED BLOOD-PRESSURE READING, W/O DIAGNOSIS OF HTN (7) Rubella non-immune status, antepartum Status: Acute Code(s): O99.89 - OTH DISEASES AND CONDITIONS COMPL PREG/ CHLDBRTH; Z28.3 - UNDERIMMUNIZATION STATUS (8) Lumbar radiculopathy Status: Acute Code(s): M54.16 - RADICULOPATHY, LUMBAR REGION (9) Major depression, chronic Status: Acute Code(s): F32.9 - MAJOR DEPRESSIVE DISORDER, SINGLE EPISODE, UNSPECIFIED Disposition: Pt is a 19 yo @ 30.2 wks by LMP (05/27/19) c/w with 1T US @ 13.0 wks who presents with an elevated blood pressure & leakage of fluid from PNC. 1. Vaginal Bleeding Soaked a pad and wash cloth has blood * Speculum Exam: dark blood * Looks like recent bleed * Ultrasound order * Will evaluate cervical length, baby's position, weight, and placenta placement and features * UDS neg, UA normal, H&H: 12.3/36.7 * Given Betamethasone @ 1800 yesterday, will give today. * LR @ 100 2. Leakage of Fluid, Improving * Amnisure: Negative * Speculum: Yellow thin discharge, but no pooling on exam * 12/21- US: HIRAM- 16, Cervical Length- 3.1-3.5cm * low lying placenta * 12/21- VP3: + BV & [facility] * Currently taking Metro for BV 3. IUP Taking PNV * Flu: declined * NIPT: declined * Blood Type: B-, Ab: + * Rhogam: 12/09/2019 * Repeat rhogam not needed as she is AB: +. 4. Anxiety & Depression Takes Hydroxyzine prn 5. Hx of Pre-term Delivery * [facility]: Declined 6. Lumbar Radiculopathy in Sciatic Distribution * Discussed using belly band to help * Tylenol prn for pain 7. Hx of Severe Pre-E * MD Aware 8. Elevated BP without HTN BP:102/49-119/62 today Dispo: Admit to obs for vaginal bleeding. LOS <48H. Will discharge today after second dose of steroids. Discussion: Date/Time: 12/27/19 0644 This H&P was discussed with [] and [] who agree with the above documentation and plan. Addendum - Attending - Attending Attestation Date/Time: 12/29/191849 I personally evaluated the patient and discussed the management with Dr. Soto I agree with the History, Examination, Assessment and Plan documented above with any addition or exceptions noted below.
--- NOTE | 2019-12-27 07:49 | PRG ---
DATE OF SERVICE: 12/27/2019 SUBJECTIVE: The patient is a 19-year-old female with an intrauterine at 30 weeks and 2 days, presented to Labor and Delivery yesterday with complaints of vaginal bleeding. OBJECTIVE: The patient had enough bleeding to warrant staying and has been here overnight for steroid administration. Since admission, however, the patient has had very scant bleeding with only a couple of drops on her pad. She otherwise has no other complaints and is doing well, tolerating a diet and denying pain and voiding on her own. The patient of note is B negative and was given RhoGAM on 12/08. ASSESSMENT AND PLAN: The patient is a 19-year-old female who is now hospital day 2 for vaginal bleeding. Anticipate discharge home today as her bleeding has all but resolved after second dose of steroids at 1800. Plans are follow up with the clinic. Job ID: [id number]
[2019-12-27] MEDS: metroNIDAZOLE 500 MG TAB PO SCH (07:57)
[2019-12-27] MEDS ORDERED: Prenatal Vitamin 1 TAB PO SCH (09:00)
[2019-12-27] MEDS: Acetaminophen 500 MG TAB PO PRN ×2 (11:51→17:26)
[2019-12-27 11:58] VITALS: BP 113/62; TEMP 98.6
[2019-12-27] MEDS ORDERED: Betamet Acet/Betamet Na Ph 30 MG/5 ML VIAL IM SCH ×2 (16:00→18:00)
--- NOTE | 2019-12-29 09:35 | DIS ---
DATE OF ADMISSION: 12/26/2019 DATE OF DISCHARGE: 12/27/2019 RESIDENT: Servando Soto MD ADMITTING ATTENDING: Charly Walker MD DISCHARGE ATTENDING: Flakito Reyna MD CONSULTS: None. PROCEDURES: * Speculum exam on 12/26/2019 showed a slightly dilated external cervical os without blood. * Ultrasound on 12/26/2019 showed a posterior placenta, HIRAM of 15.5, cervix of 3.6 cm with a grade 1 placenta, and cervix closed. No evidence of previa. PRIMARY DIAGNOSES: 1. Vaginal bleeding. 2. Intrauterine . SECONDARY DIAGNOSES: 1. Bacterial vaginosis. 2. Yeast. 3. Anxiety and depression. 4. History of delivery. 5. Lumbar radiculopathy. 6. History of severe pre-eclampsia. DISCONTINUED MEDICATIONS: Betamethasone. DISCHARGE MEDICATIONS: 1. Metronidazole 500 mg p.o. b.i.d. for 7 days total, should be finished on 06/2020. 2. vitamin 1 tablet daily. HISTORY OF PRESENT ILLNESS: The patient is a 19-year-old, G4, P1-1-1-2 at 30 and 2 weeks by LMP consistent with 13-week ultrasound, who presents for vaginal bleeding. She was here twice earlier this week. She had fluid leaking. AmniSure and speculum exam were negative. She finished a course of clotrimazole on Sunday and her VP3 showed Ains[place] and BV, so we sent her in metronidazole on 12/21. She came back the next day for fluid as well. Exam was negative as before, and it was determined it is likely discharge from the BV and Ainsley as well as possible some urinary leakage. She said on 12/22 after the speculum exam she experienced slight spotting. She continued to have spotting. Contractions developed on 12/24 and were 5 to 20 minutes apart. On 12/25, she soaked through a pad and after that used washcloth to soak up blood. She called clinic at 2:30 p.m. on and was told to come in. EMS was called and brought her in. 1. Vaginal bleedin * Speculum exam showed dark blood, appears to be a recent bleed. * Ultrasound as above. * UDS and UA are within normal limits. * Type and screen showed she was B negative, antibody positive, and hemogram showed a hemoglobin of 12. * She was given a betamethasone shot on 12/25 at 1800 and received her second one on 12/26 at 1800. She was given LR at 100. * The baby was put on the monitor to evaluate. The baby had a category 1 strip with contractions 5 to 10 minutes apart and heart rate at 140 with no decelerations. Accelerations present and had moderate variability. 2. BV. * Continue taking metronidazole till 12/29/2019. 3. Intrauterine , taking vitamin, declined NIPT. * Blood type B negative, antibody positive. RhoGAM was given on 12/09/2019. * She does not need another RhoGAM due to positive antibody status. 4. Anxiety and depression. Continue hydroxyzine p.r.n. 5. History of delivery [place] declined. 6. Lumbar radiculopathy in sciatic distribution. We recommended belly band to help on 12/21, Tylenol p.r.n. for pain. 7. History of severe pre-eclampsia. MD aware. 8. History of elevated blood pressure without hypertension. Blood pressures were within normal limits during entire hospital stay. DISCHARGE INSTRUCTIONS: 1. Location: Home. 2. Activity: Pelvic rest until 6 weeks after . 3. Diet: Regular. 4. Followup: Follow up with clinic for regularly scheduled visit. Job ID: [id number] [email or web address]
== END 2019-12-27 18:05 | disposition home health service (06) ==
LOC: L&D/OP 15:40 → L&D 17:50 → 3SW 20:53
PROVIDERS: ADMIT Obstetrics & Gynecology; ATTEND Obstetrics & Gynecology
DX: O46.93 Antepartum hemorrhage, unspecified, third trimester (principal); O98.813 Other maternal infectious and parasitic diseases complicating pregnancy, third trimester; B37.3 Candidiasis of vulva and vagina; O23.593 Infection of other part of genital tract in pregnancy, third trimester; B96.89 Other specified bacterial agents as the cause of diseases classified elsewhere; O99.343 Other mental disorders complicating pregnancy, third trimester; F41.9 Anxiety disorder, unspecified; F32.9 Major depressive disorder, single episode, unspecified; O99.89 Other specified diseases and conditions complicating pregnancy, childbirth and the puerperium; M54.16 Radiculopathy, lumbar region; R03.0 Elevated blood-pressure reading, without diagnosis of hypertension; O09.213 Supervision of pregnancy with history of pre-term labor, third trimester; O09.293 Supervision of pregnancy with other poor reproductive or obstetric history, third trimester; Z3A.30 30 weeks gestation of pregnancy; Z91.048 Other nonmedicinal substance allergy status
CPT/HCPCS: 36415; 59025; 76815; 80306; 81001; 85027; 86850; 86870; 86900; 86901; 96360; 96361; 96372; 99285; A4353; G0378; J0702

== ENCOUNTER 2020-02-04 12:40 | Day surgery (SDC) | payer OTHER ==
[2020-02-04 13:11] VITALS: BMI 33.8
--- NOTE | 2020-02-04 13:39 | PDOC.FPROB ---
FMR OB H&P: HPI - History of Present Illness Chief Complaint: contractions Indentification: 19 yo at 36.1 wga by 13.0wk sono History of Present Illness: 19 yo F here having contractions for several days. Reports they slowed down and sped up. Closest they got together was 5 min apart. She is a poor historian w/ regards to her history. Went to clinic today due to contractions and sent here for IV fluids. + diarrhea, about 6 BMs in last 24 hrs. Took castor oil several days ago to try telling RN she tried to induce labor, but told me she took it for diarrhea. Check at clinic was fingertip, not effaced. Pt denies loss of FM. No VB/VD. History of premature delivery at 36 weeks. Has history of Pre-E not taking aspirin. Says her baby is estimated at 8 lbs. Denies history of diabetes. Primary Care Physician: CHEYANNE- - Care : 4 Para: 1112 Gestational age: 30.0 Due date: 03/02/2020 Dating Criteria: LMP c/w 13.0 wk US Complications: borderline 1 hr gtt without completion of 3hr gtt, recurrent yeast and BV infections this - OB Labs Blood type: B RH: negative Antibody Screen: negative HIV: negative RPR: negative HepBsAg: negative Rubella: immune Gonorrhea: negative Chlamydia: negative Pap Smear: NILM 09/2019 1 hour gtt: 134 H&H: 11.9/34.3 Platelets: 243 GBS: negative, done on 01/15/2020 Other: urine protein/creatinine 236 mg/g FMR OB H&P: History - Past Medical History PMH: Allergic Rhinitis, Depression, Anemia - OB History OB History: 2 Pregnancies: 1- 36 wks, 2017 & 2- 2019 with Severe Pre-E Spontaneous : 07/06 @ 6 wks - [employer] 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 Lives with her grandmother. FMR OB H&P: Medications - Current Home Medications: Medication Instructions Recorded Confirmed Type Vitamin 1 tablet PO DAILY 10/08/18 02/04/20 History metroNIDAZOLE [Metronidazole] 500 mg PO BID 7 Days #14 tab 12/22/19 02/04/20 Rx Acetaminophen [Tylenol Extra 500 mg PO Q6H PRN tab 12/27/19 02/04/20 Rx Strength] Allergies/Adverse Reactions: Allergies Allergy/AdvReac Type Severity Reaction Status Date / Time iodine Allergy Verified 02/04/20 13:09 FMR OB H&P: ROS - Review of Systems General: denies: fever/chills, fatigue Eyes: denies: vision changes ENT: denies: nasal congestion, sore throat Cardiovascular: denies: chest pain Respiratory: denies: cough, shortness of breath Gastrointestinal: denies: abdominal pain, nausea, vomiting Genitourinary (Female): reports: vaginal pain, contractions, vaginal pressure. denies: dysuria, vaginal discharge, vaginal bleeding Musculoskeletal: denies: pain Neurologic: denies: seizures, weakness Integumentary: reports: itching. denies: rash, lesions Hematologic/Lymphatic: denies: prolonged or excessive bleeding Psychological: denies: depression, anxiety FMR OB H&P: Vital Signs - Maternal Vital signs: BP: 125/77 - Heart Tones Baseline: 140 Variability: moderate Acceleration: present Deceleration: absent [place] contractions every: uterine irritability FMR OB H&P: Physical Exam - Physical Exam General: NAD, awake, alert and oriented HEENT: normocephalic and atraumatic, PERRLA, EOMI, conjunctiva clear, grossly normal vision, grossly normal hearing Neck: trachea midline Heart: RRR, normal S1/S2 Deviation from normal: trace edema b/l General: CTAB, no respiratory distress Abdomen: soft, gravid, bowel sound present Musculoskeletal: pulses present, no atrophy Skin: no rash Psychiatric: intact recent and remote memory, normal mood and affect - Pelvic Exam SVE: fingertip/50%/-3 Membranes: intact Estimated Weight: 8 lbs FMR OB H&P: A/P - Problem List (1) History of labor Current Visit: No Status: Acute Code(s): Z87.51 - PERSONAL HISTORY OF PRE- TERM LABOR (2) Pelvic pain Current Visit: No Status: Acute Code(s): R10.2 - PELVIC AND PERINEAL PAIN (3) Rh negative status during Current Visit: No Status: Acute Code(s): O26.899 - OTH RELATED CONDITIONS, UNSPECIFIED TRIMESTER; Z67.91 - UNSPECIFIED BLOOD TYPE, RH NEGATIVE Disposition: observe on L&D, IVF rehydrate. Discussion: Date/Time: 02/04/20 1339 19 yo F at 36.1 wga here for: contractions, irregular Diarrhea - labor rule out. Will give IVF and assess in 1-2 hours. - CMP Hx of Pre-eclampsia - normal BP here. Continue to monitor. Hx of yeast infxn in - VP3 pending - UA clean catch Hx of Rhogam neg status - received rhogam this - denies bleeding - monitor This H&P was discussed with Dr. Byrd, who agrees with the above documentation and plan. Signature: Magdalena Bautista MD PGY1
[2020-02-04] MEDS ORDERED: hydrALAZINE 20 MG/ML VIAL SLOW IVP PRN (13:57)
[2020-02-04] MEDS: Sodium Chloride 0.9% 1,000 ML IV SCH ×2 (14:00→14:57)
[2020-02-04] MEDS ORDERED: Ondansetron PF 4 MG/2 ML Vial ONE (14:53)
[2020-02-04] MEDS ORDERED: Ondansetron PF 4 MG/2 ML Vial IVP SCH (15:00)
[2020-02-04 15:13] VITALS: BP 134/82; TEMP 98.4
--- NOTE | 2020-02-04 15:13 | HP ---
Time of evaluation roughly 1420 hours. LOCATION: Labor and Delivery Triage. This is a patient of the clinic. The patient was first seen by Dr. Bautista, who is the resident on-call. CHIEF COMPLAINT: Possible contractions at 36 weeks and 1 day. HISTORY OF PRESENT ILLNESS: This is a 19-year-old, 4, para 1-1-1-2 with one delivery at 36 weeks in the past and her last delivery being at 39 weeks. She states that she was seen at the clinic earlier today and was checked and was fingertip then, but came over here because she has had persistent loose stool, which is the result of her taking castor oil because she wanted to go into labor. She denies fever, vaginal bleeding, or leakage of fluid. She has ultrasound dating in the first trimester. She has good movement. REVIEW OF SYSTEMS: Complete review of systems was checked and is otherwise negative unless specified in the HPI. PAST OB HISTORY: One previous vaginal at 36 weeks and then one previous vaginal at 39 weeks, and the last one was at 39 weeks. Her last delivery, 39 weeks, also had severe preeclampsia, but her blood pressures have been normal in this . PAST MEDICAL HISTORY: She was offered aspirin for her severe preeclampsia history, but she has not been taking that aspirin. ALLERGIES: IODINE. SURGICAL HISTORY: Noncontributory. PHYSICAL EXAMINATION: VITAL SIGNS: Her blood pressure is 120/70, pulse is in the 80s. She is afebrile. GENERAL: Clinically, she is in no acute distress. ABDOMEN: Soft and nontender. CERVICAL: Reveals a cervix that is fingertip, 50% effaced, -3 station. Bag of water is intact. On monitor, heart tones are in the 130s to 140s and they are reactive. There is irregular uterine irritability on tocodynamometer, but no distinct contraction pattern. Interventions ordered, a VP3 has been ordered due to history of vaginal discharge and a complete metabolic profile has also been ordered. ASSESSMENT: This is a 19-year-old, G4, P1-1-1-2 at 36 weeks and 1 day, dated by a 13-week ultrasound, who is here for possible contractions, although she has not made cervical change from fingertip, which is what she was in the clinic earlier today. She is taking castor oil, which has given her diarrhea and she has been advised to stop doing that. She was told during today's visit that castor oil does not induce labor, but does result in a diarrhea. PLAN: 1. We will check her complete metabolic profile to make sure there is no electrolyte disturbances and we will also do a VP3 for a complaint of occasional vaginal discharge. 2. I have also ordered some IV fluids for hydration. 3. No evidence of labor at this time and we will just follow conservatively here in Labor and Delivery. Job ID: [id number]
[2020-02-04 15:32] LABS: ALT (SGPT) 32 U/L (8-55); AST (SGOT) 26 U/L (5-34); Albumin 3.1 g/dL (3.5-5.0); Alkaline Phosphatase 209 U/L (40-110); Anion Gap 12 mmol/L (10-20); BUN (Urea Nitrogen) 14 mg/dL (7.0-18.7); Bilirubin, Total 0.2 mg/dL (0.2-1.2); Calc. Creatinine Clearance 167 mL/min (70-130); Calcium 8.4 mg/dL (7.8-10.44); Carbon Dioxide 18 mmol/L (22-29); Chloride 109 mmol/L (98-107); Estimated GFR-MDRD Greater than 90; Globulin 3.2 g/dL (2.4-3.5); Glucose 75 mg/dL (70-105); Potassium 4.1 mmol/L (3.5-5.1); Protein, Total 6.3 g/dL (6.0-8.3); Sodium 135 mmol/L (136-145)
[2020-02-04 16:00] LABS: Bacteria/HPF 2+ HPF (None Seen); Bilirubin Negative (Negative); Blood, Urine 1+ (Negative); Clarity Turbid (Clear); Glucose, Urine (Dipstick) Normal (Negative); Leukocyte 500 Leu/uL (Negative); Nitrite Negative (Negative); Protein, Urine (Dipstick) 10 mg/dL (Neg-Trace); Urobilinogen Normal mg/dL (Less than 2); WBC/HPF 21-50 HPF (0-3)
--- NOTE | 2020-02-04 16:01 | PDOC.BPN ---
- Brief Progress Note Rechecked patient. Feeling somewhat better, feeling pelvic pressure off and on, but appears comfortable. VP3 shows +BV and +manolo, however she is in the middle of completing metronidazole course. She may continue monistat and f/u at [facility] for risk/benefit discussion of using diflucan if her yeast symptoms persist and become absolutely intolerable. UA showing abnormalities but squamous cells in sample. SVE: fingertip/thick/high Plan: - discharge to home - f/u w/ [facility] as indicated - complete metronidazole course. - recommend repeat UA as outpatient. - counseled on signs/symptoms of labor. Avoid castor oil as it is dehydrating. Discussed benefits of delivering at full term. Return precautions given.
== END 2020-02-04 16:54 | disposition home or self-care (01) ==
LOC: L&D/OP 12:40
PROVIDERS: ATTEND Obstetrics & Gynecology
DX: O47.03 False labor before 37 completed weeks of gestation, third trimester (principal); O99.613 Diseases of the digestive system complicating pregnancy, third trimester; R19.7 Diarrhea, unspecified; O09.293 Supervision of pregnancy with other poor reproductive or obstetric history, third trimester; O98.813 Other maternal infectious and parasitic diseases complicating pregnancy, third trimester; B37.3 Candidiasis of vulva and vagina; O23.593 Infection of other part of genital tract in pregnancy, third trimester; B96.89 Other specified bacterial agents as the cause of diseases classified elsewhere; Z3A.36 36 weeks gestation of pregnancy; Z88.8 Allergy status to other drugs, medicaments and biological substances
CPT/HCPCS: 36415; 80053; 81001; 87480; 87510; 87660; 96360; 96361; 96375; 99284; J2405

== ENCOUNTER 2020-02-09 10:26 | Inpatient (IN) | payer OTHER ==
[~2020-02-09 10:26] MED LIST: Bupivacaine HCl 0.5%/Epinephrine 1:200,000/PF 30 ml Vial ONE; Lidocaine 2% MPF 10 ML AMP (For Epidural Use) ONE
--- NOTE | 2020-02-09 10:50 | PDOC.FPROB ---
FMR OB H&P: HPI - History of Present Illness Chief Complaint: mIOL for cholestasis of , sent from [facility] Indentification: 19 yo at 36.6 wga by 13.0wk sono History of Present Illness: This 19-F pt presents to L&D after being sent from the [facility] clinic. She had developed severe pruritis last week, and bile acids were 27. AST/ALT/total bilirubin were WNL per Dr. Mireles at [facility]. Pt reports continued itching in her palms and soles as well as itching "all over." + nausea. Reports intermittent contractions. + FM. No VB. + vag discharge of white/clear. No LOF. [facility] - Care : 4 Para: 1112 Gestational age: 36.6 Due date: 03/02/2020 Dating Criteria: LMP c/w 13.0 wk US Complications: Cholestasis of Recurrent BV, yeast infection in - OB Labs Blood type: B RH: negative Antibody Screen: negative HIV: negative RPR: negative HepBsAg: negative Rubella: immune Gonorrhea: negative Chlamydia: negative Pap Smear: NILM 09/2019 1 hour gtt: 134 3-hour gtt: 75, 143, 129 H&H: 11.9/34.3 Platelets: 243 GBS: negative, done on 01/15/2020 Other: urine protein/creatinine 236 mg/g FMR OB H&P: History - Past Medical History PMH: Allergic Rhinitis, Depression, Anemia - OB History OB History: 2 Pregnancies: 1- 36 wks, 2017 & 2- 2019 with Severe Pre-E Spontaneous : 07/06 @ 6 wks Rh-negative: Rhogam given 12/09/2019 - [employer]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 Lives with her grandmother. FMR OB H&P: Medications - Current Home Medications: Medication Instructions Recorded Confirmed Type Vitamin 1 tablet PO DAILY 10/08/18 02/09/20 History metroNIDAZOLE [Metronidazole] 500 mg PO BID 7 Days #14 tab 12/22/19 02/09/20 Rx Acetaminophen [Tylenol Extra 500 mg PO Q6H PRN tab 12/27/19 02/09/20 Rx Strength] Allergies/Adverse Reactions: Allergies Allergy/AdvReac Type Severity Reaction Status Date / Time iodine Allergy Verified 02/04/20 13:09 FMR OB H&P: ROS - Review of Systems General: denies: fever/chills, weight/appetite/sleep changes Eyes: denies: vision changes ENT: denies: nasal congestion, sore throat Cardiovascular: denies: chest pain, edema Respiratory: denies: cough, shortness of breath Gastrointestinal: reports: nausea. denies: abdominal pain, vomiting, diarrhea, constipation Genitourinary (Female): reports: vaginal discharge, contractions. denies: dysuria, vaginal pain, vaginal bleeding Musculoskeletal: denies: pain, tenderness Neurologic: reports: headache (mild). denies: syncope, weakness Integumentary: reports: itching. denies: rash, lesions Hematologic/Lymphatic: denies: prolonged or excessive bleeding Psychological: denies: depression, anxiety FMR OB H&P: Vital Signs - Maternal Vital signs: BP 124/81, HR 87 - Heart Tones Baseline: 130 (reactive) Variability: moderate Acceleration: present (x2) Deceleration: absent [place] contractions every: uterine irritability, one contraction seen in 10 min FMR OB H&P: Physical Exam - Physical Exam General: NAD, awake, alert and oriented HEENT: normocephalic and atraumatic, MMM, conjunctiva clear, no scleral icterus , grossly normal vision, grossly normal hearing, oropharynx clear Neck: supple, FROM Heart: RRR, normal S1/S2, no murmurs/rubs/gallops, no edema General: CTAB, no respiratory distress Abdomen: soft, gravid Musculoskeletal: normal gait and station Neurological: no focal deficit Skin: no rash Lymphatic: no unusual bruising or bleeding Psychiatric: intact recent and remote memory, normal mood and affect - Pelvic Exam Vulva: normal hair distribution, no masses, no lesions Deviation from normal: gross amount of white/cottage cheese discharge on exam SVE: 1/uneffaced/-2, posterior, soft Membranes: intact Presentation: cephalic, confirmed by bedside sono Estimated Weight: 8 lbs FMR OB H&P: A/P - Problem List (1) Cholestasis during in third trimester Current Visit: Yes Status: Acute Code(s): O26.613 - LIVER AND BILIARY TRACT DISORD IN , THIRD TRIMESTER; K83.1 - OBSTRUCTION OF BILE DUCT (2) History of labor Current Visit: No Status: Acute Code(s): Z87.51 - PERSONAL HISTORY OF PRE- TERM LABOR (3) Rh negative status during Current Visit: No Status: Acute Code(s): O26.899 - OTH RELATED CONDITIONS, UNSPECIFIED TRIMESTER; Z67.91 - UNSPECIFIED BLOOD TYPE, RH NEGATIVE Disposition: Admit to L&D for mIOL. Discussion: Date/Time: 02/09/20 1045 19-yo F at 36.6 wga by 13.0 wk sono being admitted for: Cholestasis of - admit to L&D for mIOL - at 36.6, discussed possibility of giving steroids but feel risk outweighs benefit given pt is so close to 37 wga. - pastrana of 4. Will start induction w/ cytotec. - risks, benefits and alternatives of induction explained including possibility of - cytotec 25mcg now and recheck in 4 hrs. Recent bacterial vaginosis and yeast infection - monitor. Rh-negative status - give rhogam within 72 hours of delivery. This H&P was discussed with Dr. Rubalcava and Dr. Lester, who agree with the above documentation and plan. Signature: Magy Bautista MD PGY-1 Addendum - Attending - Attending Attestation Date/Time: 02/09/20 7119 I personally evaluated the patient and discussed the management with Dr. Bautista. I agree with the History, Examination, Assessment and Plan documented above with any addition or exceptions noted below.
[2020-02-09] MEDS ORDERED: Promethazine HCl 25 MG/ML VIAL IM PRN ×2 (11:25→16:34)
[2020-02-09] MEDS ORDERED: Carboprost 250 MCG/ML AMP IM PRN (11:25)
[2020-02-09] MEDS ORDERED: hydrALAZINE 20 MG/ML VIAL SLOW IVP PRN (11:25)
[2020-02-09] MEDS ORDERED: Diphenoxylate HCl/Atropine Tablet PO PRN ×2 (11:25)
[2020-02-09] MEDS ORDERED: Lidocaine 1% (PF) 30 ML VIAL SC PRN (11:25)
[2020-02-09] MEDS ORDERED: Ibuprofen 800 MG TAB PO PRN (11:25)
[2020-02-09] MEDS ORDERED: Misoprostol 200 MCG TAB PR PRN (11:25)
[2020-02-09] MEDS ORDERED: NS / Oxytocin 40 units/1000ml 1,000 ML IV PRN (11:25)
[2020-02-09] MEDS ORDERED: Ondansetron PF 4 MG/2 ML Vial IVP PRN ×2 (11:25→16:34)
[2020-02-09] MEDS ORDERED: Acetaminophen 500 MG TAB PO PRN (11:25)
[2020-02-09] MEDS ORDERED: Methylergonovine 0.2 MG/ML VIAL IM PRN (11:25)
[2020-02-09 11:28] VITALS: BMI 33.6
[2020-02-09 12:10] LABS: Mean Corpuscular Hemoglobin 27.1 pg (27.0-31.0); Mean Corpuscular Volume 79.7 fL (78.0-98.0); Mean Platelet Volume 9.2 fL (7.4-10.4); Platelet Count 169 thou/uL (130-400); RBC Distribution Width 13.7 % (11.5-14.5); Red Blood Cell (RBC) Count 4.03 mill/uL (4.20-5.40); White Blood Cell (WBC) Count 6.5 thou/uL (4.8-10.8)
[2020-02-09] MEDS: Misoprostol 100 MCG TAB VAG SCH ×2 (12:39→16:56)
[2020-02-09] MEDS: Lactated Ringer's 1,000 ML IV SCH (12:40)
[2020-02-09 12:46] LABS: Hep B Surf Ag Non-Reactive S/CO (NonReactive); Syphilis Antibody Nonreactive (Nonreactive); Syphilis Antibody Index 0.06 S/CO (<1.00 Non-Reactive)
[2020-02-09 12:47] LABS: ALT (SGPT) 39 U/L (8-55); AST (SGOT) 28 U/L (5-34); Albumin 3.4 g/dL (3.5-5.0); Alkaline Phosphatase 252 U/L (40-110); Anion Gap 15 mmol/L (10-20); BUN (Urea Nitrogen) 13 mg/dL (7.0-18.7); Bilirubin, Total 0.4 mg/dL (0.2-1.2); Calc. Creatinine Clearance 155 mL/min (70-130); Calcium 8.6 mg/dL (7.8-10.44); Carbon Dioxide 18 mmol/L (22-29); Chloride 108 mmol/L (98-107); Estimated GFR-MDRD Greater than 90; Globulin 3.1 g/dL (2.4-3.5); Glucose 68 mg/dL (70-105); Potassium 4.1 mmol/L (3.5-5.1); Protein, Total 6.5 g/dL (6.0-8.3); Sodium 137 mmol/L (136-145)
[2020-02-09] MEDS ORDERED: Fentanyl 4 mcg/Bup 0.1% Cadd 100 ML ONE (15:52)
[2020-02-09] MEDS ORDERED: Lactated Ringer's 500 ML IV PRN (16:34)
[2020-02-09] MEDS ORDERED: diphenhydrAMINE 50 MG/ML VIAL IVP PRN (16:34)
[2020-02-09] MEDS ORDERED: Naloxone HCl 0.4 mg/ml Vial IVP PRN ×2 (16:34)
[2020-02-09] MEDS ORDERED: Acetaminophen 325 MG TAB PO PRN (16:34)
[2020-02-09] MEDS ORDERED: EPHEDRINE 25 MG/5 ML SYRINGE SLOW IVP PRN (16:34)
[2020-02-09] MEDS ORDERED: Communication Order-Pharmacy FS SCH (16:45)
[2020-02-09] MEDS ORDERED: Fentanyl 4 mcg/Bupivacaine 0.1% Cassette 100 ML EPIDURAL SCH (16:45)
--- NOTE | 2020-02-09 16:58 | PDOC.LDPN ---
Labor & Delivery Progress Note - Subjective Subjective: comfortable, no concerns, other (epidural just placed) - Objective Vital signs reviewed and normal: yes General: NAD SVE: midposition, soft Dilation: 4 Effacement: 75% Station: -1 FHT: category 1, variability present [place] contractions every: 2 min - Assessment (1) Cholestasis during in third trimester Code(s): O26.613 - LIVER AND BILIARY TRACT DISORD IN , THIRD TRIMESTER ; K83.1 - OBSTRUCTION OF BILE DUCT Current Visit: Yes Status: Acute (2) History of labor Code(s): Z87.51 - PERSONAL HISTORY OF PRE-TERM LABOR Current Visit: No Status: Acute (3) Rh negative status during Code(s): O26.899 - OTH RELATED CONDITIONS, UNSPECIFIED TRIMESTER; Z67.91 - UNSPECIFIED BLOOD TYPE, RH NEGATIVE Current Visit: No Status: Acute Plan: continue plan of care -: - continue expectant mgmt - refugio well and making change after 1 dose of cytotec - if contractions space out, we may start pitocin. However, for now we will continue to monitor and recheck cervix in 3-4 hours.
[2020-02-09] MEDS ORDERED: Betamet Acet/Betamet Na Ph 30 MG/5 ML VIAL IM SCH (18:30)
[2020-02-09] MEDS ORDERED: NS w/ Oxytocin 10 units 500 ML IV SCH (18:45)
--- NOTE | 2020-02-09 18:52 | PDOC.LDPN ---
Labor & Delivery Progress Note - Subjective Subjective: comfortable - Objective Vital signs reviewed and normal: yes General: resting, breathing through contractions Uterine fundus: non tender SVE: 4/60/-2 Dilation: 4 Station: -2 FHT: category 1 Resuscitative measures: maternal IV fluids Plan: continue plan of care -: - continue expectant mgmt - no change since last check 2 hours ago - if no change at next check, we may start pitocin Addendum - Attending - Attending Attestation Date/Time: 02/09/201923 I personally evaluated the patient and discussed the management with Dr. Hill I agree with the History, Examination, Assessment and Plan documented above with any addition or exceptions noted below. 19 yo female at 36.6 wks by LMP/13.0 wk sono Patient comfortable with epidural. No other complaints. VS and FHT reviewed. SVE unchanged from previous exam but appropriate contraction pattern. - IHCP: Continue with induction. - : s/p BMZ course in December for vaginal bleeding. No need for rescue dose due to GA. Iván aware. - Hx of low lying placenta but documented as resolved. - Hx of delivery - Hx of preE - Rh negative: s/p rhogam. Rhogam as needed in pp based on blood type. Continue expectant management at this time. Continuous monitoring. Hold pitocin augmentation at this time. Linda
[2020-02-09] MEDS ORDERED: Terbutaline Sulfate 1 MG/ML VIAL ONE (19:52)
[2020-02-09] MEDS ORDERED: Lidocaine 2% MPF 10 ML AMP (For Epidural Use) ONE (19:57)
[2020-02-09] MEDS ORDERED: EPHEDRINE 25 MG/5 ML SYRINGE ONE (20:00)
[2020-02-09] MEDS ORDERED: Oxytocin 10 UNITS/ML VIAL ONE ×3 (20:00→21:16)
[2020-02-09] MEDS ORDERED: Ketorolac Tromethamine 30 MG/ML VIAL ONE (20:00)
[2020-02-09] MEDS ORDERED: Succinylcholine Chloride 20 MG/ML 10 ml SYRINGE FS ONE (20:01)
[2020-02-09] MEDS ORDERED: Azithromycin 500 MG VIAL ONE (20:01)
[2020-02-09] MEDS ORDERED: PROPOFOL 0 ML ONE (20:01)
[2020-02-09] MEDS ORDERED: Midazolam HCl 2 mg/2 ml Vial ONE (20:24)
[2020-02-09] MEDS ORDERED: MORPHINE 5 MG/10 ML PF VIAL ONE (20:24)
[2020-02-09] MEDS ORDERED: Azithromycin 500 MG in Sodium Chloride 0.9% 250 ML 250 ML IVPB SCH (20:30)
[2020-02-09] MEDS ORDERED: CEFAZOLIN 2 GM in Premix Bag 1 BAG IVPB SCH (20:30)
[2020-02-09] MEDS ORDERED: Bicitra 30 ML UDCUP PO SCH (20:30)
[2020-02-09] MEDS ORDERED: Bupivacaine HCl 0.5%/Epinephrine 1:200,000/PF 30 ml Vial ONE (20:36)
[2020-02-09] MEDS ORDERED: Meperidine HCl/PF 25 MG/ML VIAL ONE (20:38)
[2020-02-09] MEDS ORDERED: Tranexamic Acid 1,000 MG/10 ML VIAL ONE ×2 (20:41→20:46)
[2020-02-09] MEDS ORDERED: Methylergonovine 0.2 MG/ML VIAL ONE (20:42)
[2020-02-09 20:49] LABS: Actual Bicarbonate (HCO3v) 22 mEq/L (22-28); Base Excess -6.7 mEq/L (-2.0 to +3.0)
[2020-02-09 20:51] LABS: Actual Bicarbonate (HCO3a) 22.7 mEq/L (22-28); Base Excess (BEa) -6.7 mEq/L (-2.0 to +3.0)
[2020-02-09 20:52] LABS: pH (Cord, venous) 7.23 (7.32-7.43)
[2020-02-09 21:14] LABS: Hemoglobin 8.9 g/dL (12.0-16.0); Mean Corpuscular HGB CONC 33.9 g/dL (32.0-36.0); Mean Corpuscular Hemoglobin 27.4 pg (27.0-31.0); Mean Corpuscular Volume 80.8 fL (78.0-98.0); Platelet Count 153 thou/uL (130-400); RBC Distribution Width 13.6 % (11.5-14.5); Red Blood Cell (RBC) Count 3.25 mill/uL (4.20-5.40)
--- NOTE | 2020-02-09 22:04 | PDOC.OPDEL ---
OB Operative/Delivery Note Delivery Dr/Surgeon: Dr. Mark/Rajesh Assist: Dr. Lupe Anand - Attending Pre-Delivery Diagnosis: medically indicated induction Procedure/Post Delivery Dx: primary low transverse CS Weeks gestation: 36 (6) Anesthesia: spinal - Findings A Sex: male - 1 min: 8 - 5 min: 9 - Additional Findings/Plan Placenta delivered: spontaneous findings: low transverse hysterotomy without extension, normal ovaries , other (low lying placenta creating difficulty with complete extraction of all products of conception. Small area (1cm) of placental bled that was bleeding with mild irritation but improved with uterotonics and TSA.) Compilations/Other Findings: Delivery time 2031 Addendum - Attending - Attending Attestation Date/Time: 02/09/202229 I personally participated in the management and above procedure with Dr. Martinez and Deedee I agree with the History, Examination, Assessment and Plan documented above with any addition or exceptions noted below. 19 yo female at 36.6 wks by LMP/13.0 wk sono undergoing IOL for IHCP. Patient noted to have approximately 500 mL of vaginal bleeding. On SVE, lower edge of placenta believed to be palpated. Membranes intact. 5 cm dilation. FHR cat 1 with tachysystole. 1 dose of turbutaline given to inhibit contractions and maintain state. Bedside sono used to try to verify low lying placenta. Posterior, right lateral placenta noted. Appeared low lying. Unstable abruption with low lying placenta dx. Risk and complications discussed with patient. Questions answered. Urgent C/S called. Bleeding remained stable at this time. Contraction frequency decreased. FHR initially cat 1. No decels. Prior to going into ER noted to have several late decels. See dictated op report for complete surgical procedure. Thick mec noted upon entering amniotic sac. delivered without complications. Low lying posterior placenta noted upon entering uterus. Easy spontaneous removal. However persistent POC noted in lower segment. Membranes removed. Once cleared noted small area of placenta bed bleeding with possible pathologic area of adherence. Methergine and TXA called for and given quickly. Pressure held. Monitored. Bleeding slowed. Evaluated need over sew area. Hemostasis noted. Hysterotomy closed without difficulty in 2 layers. Hemostasis throughout the remainder of case. Skin closed with suture. QBL 1995 mL Patient sent to recovery for close monitoring. Repeat labs pending. Placenta sent to path. Male infant with 8/9 APGARs. Thick mec. required deep suctioning with 4 to 5 mL of mec stained fluid removed. Postop note to be done in 4 hours. ABrayMD
--- NOTE | 2020-02-09 22:20 | PDOC.BPN ---
<Cleopatra Brewster - Last Filed: 02/09/20 22:17> - Brief Progress Note Called at 1930 for vaginal bleeding with clots, went up to reassess, patient was uncomfortable with vaginal pressure Heavy VB with clots on pad. SVE: placenta palpated, bedside sono showing low lying placenta FHT Cat I at that time with tachysytole. Pit never started, just cytotec x2. Urgent C section called due to concern for continue placental bleeding. Discussed with patient who is in agreement with plan Anesthesia called, Type & cross PRBC x2 units <Lupe Anand - Last Filed: 02/10/20 06:52> - Brief Progress Note I was present and performed both above exams. Turbutaline given. Bleeding stabilized. FHT cat 1. R/B/A discussed with patient. Questions answered. Urgent c/s called 2/2 abruption with low lying placenta with vaginal delivery contraindicated. EBL 500 to 800 mL at bedside. Prior to reaching OR, FHR progressed to cat 2 with late decelerations. Linda
[2020-02-09] MEDS ORDERED: Bisacodyl 10 MG SUPP PR PRN (23:51)
[2020-02-09] MEDS ORDERED: Milk Of Magnesia 30 ML UDCUP PO PRN (23:51)
[2020-02-09] MEDS ORDERED: diphenhydrAMINE 25 MG CAP PO PRN (23:51)
[2020-02-09] MEDS ORDERED: Ibuprofen 800 MG TAB PO SCH (23:59)
[2020-02-09] MEDS ORDERED: Docusate Calcium (SURFAK) 240 MG CAP PO SCH (23:59)
[2020-02-10] MEDS: Lactated Ringer's 1,000 ML IV SCH ×4 (01:12→18:02)
[2020-02-10] MEDS: Misoprostol 100 MCG TAB VAG SCH (01:14)
--- NOTE | 2020-02-10 04:15 | PDOC.BPN ---
<Humza Soto - Last Filed: 02/10/20 04:30> - Brief Progress Note 6-hour Post C/S Note S: Doing well. Pain well-controlled. Cano in place. NPO. No n/v, fever/chills, CP/SOB. Moderate pruritus, mildly improved with benadryl. Attempting to breast feed. O: Selected Entries 02/10/20 00:35 Temperature 98.3 F Pulse Rate 89 Blood Pressure 122/73 [Semi-Fowlers] Respiratory 18 Rate O2 Sat by Pulse 99 Oximetry Oxygen Delivery Room Air Method General: NAD, resting comfortably, good spirits CV: RRR without murmurs Pulm: CTAB : Uterus appropriately tender to palpation, firm slightly above umbilicus, lochia minimal. Cano in place with clear straw-colored urine, approx 100cc/hr output. Ext: No edema A/P: 19-yo F now at 36.6 wga by 13.0 wk sono s/p pLTCS for low lying placenta with abruption and NRFHT. PPD #1 s/p pLTCS for low lying placenta with abruption and NRFHT - Total QBL 1995cc, s/p methergen and TXA in OR - Post OR QBL of 35cc, lochia minimal since on floor - pain well-controlled - uterus firm, appropriately tender - cont routine post-c/s care, plan to remove cano later today - AM Hemagram pending, Hb 11 -> 8.9 (intra op check) Cholestasis of - will need monitoring of LFTs post Rh-negative status - give rhogam within 72 hours of delivery <Lupe Anand - Last Filed: 02/10/20 07:00> Addendum - Attending - Attending Attestation Date/Time: 02/10/20 0653 I personally evaluated the patient and discussed the management with Dr. Soto I agree with the History, Examination, Assessment and Plan documented above with any addition or exceptions noted below. 19 yo female s/p urgent PLTCS POD#1 Doing well. Some pain. Itching improved. Sleepy. Would like nursery to monitor baby so she can sleep. VS reviewed. Labs reviewed. - s/p PLTCS 2/2 abruption due to low lying placenta and NRFHT: Continue routine care. Remove cano and bandage today. Ambulate. Monitor pain control. Uterus with 2 layer closure. Ok for TOLAC in future. Skin closed with suture. - PPH: s/p pit, methergine, TXA. QBL 1995 mL. Now stable. No need for pRBC at this time. Consider iron infusion prior to d/c. - IHCP: Now delivered. CCP contraindicated due to estrogen content. Risk for recurrence with future pregnancies. - Rh negative: Rhogam based on baby's blood type - hx of preE: Monitor. - hx of delivery x 2 Continue in patient management. Follow up with PNC in 1 wk for wound check. Linda
[2020-02-10] MEDS ORDERED: Ketorolac Tromethamine 30 MG/ML VIAL IVP SCH (06:00)
[2020-02-10 06:03] LABS: Hemoglobin 8.6 g/dL (12.0-16.0); Mean Corpuscular HGB CONC 34.3 g/dL (32.0-36.0); Mean Corpuscular Hemoglobin 27.9 pg (27.0-31.0); Mean Corpuscular Volume 81.3 fL (78.0-98.0); Mean Platelet Volume 8.8 fL (7.4-10.4); Platelet Count 157 thou/uL (130-400); RBC Distribution Width 13.5 % (11.5-14.5); Red Blood Cell (RBC) Count 3.07 mill/uL (4.20-5.40)
--- NOTE | 2020-02-10 08:07 | PDOC.PP ---
Post Progress Note Post Day #: 1 Subjective: Pain well controlled. She received Benadryl at 2am and is very groggy, falling asleep currently. Would like to wait until she is more awake to chi with baby. Plans to breast and bottlefeed. She reports not being successful with in the past due to "not pumping enough." Minimal lochia. Catheter still in place. About to eat breakfast. Has not ambulated. PO intake tolerated: no Flatus: no Ambulation: no Vital Signs (12 hours) Temp Pulse Resp BP Pulse Ox 02/10/20 04:05 98.4 F 100 18 123/80 02/10/20 00:35 98.3 F 89 18 122/73 99 Weight Weight 86.183 kg - Physical Examination General: NAD Cardiovascular: no m/r/g, RRR Respiratory: clear to auscultation bilaterally Abdominal: + bowel sounds, appropriately TTP Fundus firm & at: umbilicus Deviation from normal: CS incision covered with pressure dressing Neurological: no gross focal deficits Psychiatric: A&Ox3, normal affect Result Diagrams: 02/10/20 05:42 02/09/20 11:50 Additional Labs: Post Labs Blood Type B NEGATIVE 02/09/20 11:54 Hep Bs Antigen Non-Reactive S/CO (NonReactive) 02/09/20 11:54 - Assessment/Plan sIUP, delivered - POD #1 - Continue routine PP care - Encouraged ambulation, PO intake - Undecided about contraception - Will place consult for Cholestasis of - Check bile acid and LFTs 6-8wks PP Rh-negative status - Rhogam PP Addendum - Attending - Attending Attestation Date/Time: 02/10/20 1022 I personally evaluated the patient and discussed the management with Dr. Cevallos. I agree with the History, Examination, Assessment and Plan documented above with any addition or exceptions noted below.
[2020-02-10] MEDS ORDERED: Adacel (T-DAP) 0.5 ML SYRINGE IM ONE (09:00)
[2020-02-10] MEDS: Ketorolac Tromethamine 30 MG/ML VIAL IVP SCH ×2 (09:06→14:18)
[2020-02-10] MEDS: Ferrous Sulfate 325 MG TAB PO SCH ×2 (09:06→17:57)
[2020-02-10] MEDS: Docusate Calcium (SURFAK) 240 MG CAP PO SCH (09:06)
[2020-02-10] MEDS: Ibuprofen 800 MG TAB PO SCH (21:06)
[2020-02-10] MEDS ORDERED: HYDROcodone/Acetaminophen 5/325 mg Tablet PO PRN (21:10)
[2020-02-10] MEDS ORDERED: Lanolin Ointment 7 GM TUBE TOP PRN (21:13)
[2020-02-10] MEDS: Simethicone Chewable 80 MG TAB PO PRN (21:39)
[2020-02-10] MEDS: HYDROcodone/Acetaminophen 5/325 mg Tablet PO PRN (21:39)
[2020-02-11] MEDS: Lactated Ringer's 1,000 ML IV SCH ×3 (02:40→21:57)
--- NOTE | 2020-02-11 03:30 | OP ---
DATE OF PROCEDURE: 02/09/2020 RESIDENT SURGEON: Dr. Mer Mark. LOGGER ALL ROUND SURGEON: Dr. Juan Mena. ATTENDING SURGEON: Dr. Lupe Anand. PROCEDURE PERFORMED: Primary low transverse section. PREOPERATIVE DIAGNOSES: 1. intrauterine at 36.6 wks. 2. Cholestasis of . 3. Medically indicated induction of labor for cholestasis of . 4. Rh negative. 5. History of spontaneous . 6. History of preeclampsia with severe features in previous . 7. Intrapartum bleeding with concern for placental abruption. POSTOPERATIVE DIAGNOSES: 1. intrauterine at 36.6 weeks, delivered. 2. Low-lying posterior placenta. 3. Placental abruption. 4. Cholestasis of 5. Rh negative 6. History of preeclampsia with severe features in previous . ANESTHESIA: Epidural. INDICATIONS: This is a 19-year-old, G4, P1-1-1-2 at 36.6 weeks, who was sent over for induction of labor due to newly diagnosed cholestasis of with bile acids of 27. During her intrapartum course, the patient developed vaginal bleeding, noted as several clots on 2 separate occasions. NST also showed recurrent late decelerations and deep variables, which indicated non-reassuring status. Decision was made to take the patient back for an urgent section, given concern for both a low-lying placenta as well as a placental abruption. PROCEDURE IN DETAIL: After risks, benefits, and alternatives were explained to the patient, she gave informed consent. Preoperative antibiotics included cefazolin 2 g IV and azithromycin 500 mg IV. The patient was taken to the operating room. Her epidural was bolused. She was placed in the supine position with a left tilt and prepped and draped in the usual sterile fashion. A Pfannenstiel incision was made with a scalpel and carried down to the level of fascia, which was sharply nicked. The fascial cut was extended bilaterally bluntly using the Daniel-Colmenares technique. The inferior and superior edges of the cut fascial edges were elevated with Jamari clamps, and underlying rectus muscles were sharply and bluntly dissected free. The recti were divided digitally and retracted manually. Peritoneum was entered bluntly and retracted manually. Bladder blade was placed. A low transverse score was made with a scalpel, and the uterus was entered in the midline with the scalpel. The Allis clamp was used for AROM, and gross meconium was seen. The hysterotomy was extended manually. The was noted to be vertex and was easily delivered by fundal pressure. Mouth and nares were bulb suctioned. Cord was clamped and cut, and grossly normal male was handed to the waiting nurse. Cord blood obtained. Placenta was manually extracted, found to be intact with 3-vessel cord and sent for pathology. The uterus was externalized, and the endometrium was curetted with a dry lap. There did appear to be adherence of the placenta on the posterior aspect of the uterus near the cervix, which confirmed the low-lying placenta and the associated bleeding. All membranes were removed via curette using a dry lap. The area was assessed and no over-sew was needed. Bladder blade was replaced, and the uterus was closed with a running locking #1 Monocryl suture followed by a running nonlocking #1 Monocryl imbricating suture in vertical fashion. Following this, hemostasis was noted. The uterus was examined posteriorly, and no bleeding was appreciated. The uterus was then internalized, and the hysterotomy was again noted to be hemostatic. The fascia was closed with a running nonlocking 0 PDS suture. The subcutaneous tissue was irrigated, and bleeders were cauterized. The subcutaneous tissue was approximated using 2-0 plain gut in a simple interrupted fashion. The skin was then approximated using 4-0 monofilament in a subcuticular fashion. Dermabond was placed. Pressure dressing was then applied. All counts were correct. The patient tolerated the procedure well and was taken to the recovery room in stable condition. ESTIMATED BLOOD LOSS: 1500 mL. COMPLICATIONS: None. SPECIMENS: Cord blood sent to the lab for blood type, cord gas sent for analysis, placenta sent for pathology. FINDINGS: Grossly normal male with Apgars of 8 and 9 at one and five minutes respectively. Placenta sent for pathology. Three-vessel cord noted. DRAINS: [place] to gravity, draining clear urine. Job ID: [id number] MTDD
[2020-02-11] MEDS: Simethicone Chewable 80 MG TAB PO PRN (04:36)
[2020-02-11] MEDS: HYDROcodone/Acetaminophen 5/325 mg Tablet PO PRN (04:36)
[2020-02-11] MEDS: Ibuprofen 800 MG TAB PO SCH ×3 (06:10→21:20)
[2020-02-11] MEDS ORDERED: HYDROcodone/Acetaminophen 5/325 mg Tablet PO PRN (06:35)
--- NOTE | 2020-02-11 06:37 | PDOC.PP ---
Post Progress Note Post Day #: 2 Subjective: Had significant amt of pain this morning but has improved with [place]. Tolerating PO. Breast and bottle feeding. Ambulating. PO intake tolerated: yes Flatus: yes Ambulation: yes Vital Signs (12 hours) Temp Pulse Resp BP Pulse Ox 02/11/20 04:40 98.1 F 97 16 133/90 02/10/20 23:45 98.4 F 90 16 125/86 02/10/20 21:05 99.5 F 98 16 136/86 97 Weight Weight 86.183 kg - Physical Examination General: NAD Cardiovascular: no m/r/g, RRR Respiratory: clear to auscultation bilaterally Abdominal: + bowel sounds Skin: CS incision dry & intact Neurological: no gross focal deficits Psychiatric: A&Ox3, normal affect Result Diagrams: 02/10/20 05:42 02/09/20 11:50 Additional Labs: Post Labs Blood Type B NEGATIVE 02/09/20 11:54 Hep Bs Antigen Non-Reactive S/CO (NonReactive) 02/09/20 11:54 - Assessment/Plan sIUP, delivered - POD #2 - Continue routine PP care - Undecided about contraception. F/u PNC 2 wks Cholestasis of - Check bile acid and LFTs 6-8wks PP Rh-negative status - Rhogam PP Addendum - Attending - Attending Attestation Date/Time: 02/12/20 0733 I personally evaluated the patient and discussed the management with Dr. Cevallos yesterday. I agree with the History, Examination, Assessment and Plan documented above with any addition or exceptions noted below.
[2020-02-11] MEDS: Prenatal Vitamin 1 TAB PO SCH (09:30)
[2020-02-11] MEDS: Ferrous Sulfate 325 MG TAB PO SCH ×2 (09:30→17:26)
[2020-02-11] MEDS: Docusate Calcium (SURFAK) 240 MG CAP PO SCH ×2 (09:30→21:21)
[2020-02-11] MEDS: HYDROcodone/Acetaminophen 5/325 mg Tablet PO SCH ×2 (11:39→17:26)
[2020-02-12] MEDS: HYDROcodone/Acetaminophen 5/325 mg Tablet PO SCH ×2 (00:07→05:31)
[2020-02-12] MEDS: Lactated Ringer's 1,000 ML IV SCH ×2 (03:47→11:54)
[2020-02-12] MEDS: Ibuprofen 800 MG TAB PO SCH (05:32)
--- NOTE | 2020-02-12 07:06 | PDOC.PP ---
Post Progress Note Post Day #: 3 Subjective: Pain well controlled with meds. Ambulating, tolerating PO, passing gas. Breast and bottle feeding. Feels ready to go home today. PO intake tolerated: yes Flatus: yes Ambulation: yes Vital Signs (12 hours) Temp Pulse Resp BP Pulse Ox 02/12/20 00:10 98.1 F 109 H 17 128/75 02/11/20 20:20 98.4 F 107 H 17 127/82 98 Weight Weight 86.183 kg - Physical Examination General: NAD Cardiovascular: no m/r/g, RRR Respiratory: clear to auscultation bilaterally, non-labored breathing Abdominal: + bowel sounds, appropriately TTP Skin: CS incision dry & intact Neurological: no gross focal deficits Psychiatric: A&Ox3, normal affect Result Diagrams: 02/10/20 05:42 02/09/20 11:50 Additional Labs: Post Labs Blood Type B NEGATIVE 02/09/20 11:54 Hep Bs Antigen Non-Reactive S/CO (NonReactive) 02/09/20 11:54 - Assessment/Plan sIUP, delivered - POD #3 - Continue routine PP care - Undecided about contraception. F/u PNC 2 wks - Likely discharge home today Cholestasis of - Check bile acid and LFTs 6-8wks PP Rh-negative status - Rhogam PP Addendum - Attending - Attending Attestation Date/Time: 02/12/20 0921 I personally evaluated the patient and discussed the management with Dr. Britt. I agree with the History, Examination, Assessment and Plan documented above with any addition or exceptions noted below.
[2020-02-12] MEDS ORDERED: HYDROcodone/Acetaminophen 5/325 mg Tablet PO PRN (07:07)
[2020-02-12 08:30] VITALS: BP 117/71; TEMP 98
[2020-02-12] MEDS: Prenatal Vitamin 1 TAB PO SCH (09:14)
[2020-02-12] MEDS: Docusate Calcium (SURFAK) 240 MG CAP PO SCH (09:14)
[2020-02-12] MEDS: Ferrous Sulfate 325 MG TAB PO SCH (09:14)
== END 2020-02-12 12:48 | disposition home or self-care (01) | DRG 786 ==
LOC: L&D/OP 10:26 → L&D 11:00 → L&D/OP 19:37 → 3SW 02-10 00:47
PROVIDERS: ADMIT Obstetrics & Gynecology; ATTEND Obstetrics & Gynecology
PROC: 10D00Z1 Extraction of Products of Conception, Low, Open Approach (ICD-10-PCS; principal; 2020-02-09)
PROC: 30233S1 Transfusion of Nonautologous Globulin into Peripheral Vein, Percutaneous Approach (ICD-10-PCS; 2020-02-10)
DX: O26.62 Liver and biliary tract disorders in childbirth (principal); K83.1 Obstruction of bile duct; O60.14X0 Preterm labor third trimester with preterm delivery third trimester, not applicable or unspecified; O44.53 Low lying placenta with hemorrhage, third trimester; O45.93 Premature separation of placenta, unspecified, third trimester; O72.1 Other immediate postpartum hemorrhage; Z3A.36 36 weeks gestation of pregnancy; Z37.0 Single live birth; O26.893 Other specified pregnancy related conditions, third trimester; Z67.91 Unspecified blood type, Rh negative; Z87.51 Personal history of pre-term labor; O76 Abnormality in fetal heart rate and rhythm complicating labor and delivery; O77.0 Labor and delivery complicated by meconium in amniotic fluid
CPT/HCPCS: 36415; 51702; 80053; 82805; 85027; 85461; 86780; 86850; 86870; 86900; 86901; 86922; 87340; 90384; 96372; J0456; J0670; J0690; J1885; J2001; J2175; J2210; J2250; J2274; J2405; J2590; J2704; J3105; Q0163

== ENCOUNTER 2020-06-24 17:11 | Emergency (ER) | payer OTHER ==
[2020-06-25 15:24] LABS: SARS-CoV-2 MS2 Positive; SARS-CoV-2 N Gene Negative; SARS-CoV-2 S Gene Negative; SARS-CoV-2 by NAA Not Detected (NotDetected); SARS-CoV-2 orf1ab Negative
== END 2020-06-24 17:59 | disposition home or self-care (01) ==
LOC: ERS 17:11
DX: R09.89 Other specified symptoms and signs involving the circulatory and respiratory systems (principal); D64.9 Anemia, unspecified; I49.9 Cardiac arrhythmia, unspecified; I10 Essential (primary) hypertension; F41.9 Anxiety disorder, unspecified; F32.9 Major depressive disorder, single episode, unspecified; Z79.899 Other long term (current) drug therapy; Z20.828 Contact with and (suspected) exposure to other viral communicable diseases
CPT/HCPCS: 87081; 87430; 87635; 99283; U0003

== ENCOUNTER 2020-10-28 10:52 | Emergency (ER) | payer OTHER ==
[2020-10-28] MEDS ORDERED: Famotidine/PF 20 mg/2ml Vial ONE (10:58)
[2020-10-28] MEDS ORDERED: methylPREDNISolone Sod Succ/PF 125 MG/2 ML VIAL ONE (10:58)
[2020-10-28] MEDS ORDERED: diphenhydrAMINE 50 MG/ML VIAL ONE (10:58)
[2020-10-28 11:25] LABS: BHCG - Serum Negative (NEGATIVE); Pregs Control Background? CLEAR/WHITE (CLR/WHITE); Pregs Control Bar Appear? YES (CONTROL BAR)
== END 2020-10-28 12:47 | disposition home or self-care (01) ==
LOC: ERS 10:52
DX: S40.012A Contusion of left shoulder, initial encounter (principal); M54.5 Low back pain; D64.9 Anemia, unspecified; I10 Essential (primary) hypertension; V89.2XXA Person injured in unspecified motor-vehicle accident, traffic, initial encounter
CPT/HCPCS: 70450; 71260; 72125; 74177; 84703; 96374; 96375; G0390; J1200; J2930; S0028

== ENCOUNTER 2024-08-17 01:42 | Emergency (ER) | payer OTHER, SELFPAY ==
[2024-08-17] MEDS ORDERED: Metoclopramide HCl 10 MG (2 mL) VIAL ONE (02:11)
[2024-08-17 02:13] LABS: #Basophils 0.03 10x3/uL (0.0-0.2); %Basophils 0.4 % (0.0-1.0); %Eosinophils 2.1 % (0.0-10.0); %Lymphocytes 23.9 % (21.0-51.0); %Neutrophils 65.5 % (42.0-75.0); Hematocrit 34.7 % (36.0-47.0); Hemoglobin 11.8 g/dL (12.0-16.0); Mean Corpuscular Hemoglobin 29.4 pg (27.0-31.0); Mean Corpuscular Volume 86.5 fL (78.0-98.0); Mean Platelet Volume 8.5 fL (7.4-10.4); Platelet Count 222 10x3/uL (130-400); RBC Distribution Width 12.4 % (11.5-14.5); Red Blood Cell (RBC) Count 4.01 mill/uL (4.20-5.40)
[2024-08-17 03:05] LABS: Bacteria/HPF None Seen HPF (None Seen); Bilirubin Negative (Negative); Blood, Urine Negative (Negative); CAUTI Indications for Culture Pelvic or flank pain; Clarity Clear (Clear); Glucose, Urine (Dipstick) Normal (Negative); Ketone, Urine Negative (Negative); Leukocyte Negative Leu/uL (Negative); Nitrite Negative (Negative); Protein, Urine (Dipstick) Negative (Neg-Trace); RBC/HPF 0-3 HPF (0-3); Specific Gravity, Urine 1.008 (1.002-1.036); Squamous Epithelial 0-3 HPF (0-3); Urobilinogen Normal mg/dL (Less than 2); WBC/HPF 0-3 HPF (0-3); pH, Urine 7.5 (5.0-9.0)
[2024-08-17 03:06] LABS: Urine Culture Reflex No No
[2024-08-17 03:08] LABS: BHCG - Serum POSITIVE (NEGATIVE); Pregs Control Background? CLEAR/WHITE (CLR/WHITE); Pregs Control Bar Appear? YES (CONTROL BAR)
[2024-08-17 03:28] LABS: ALT (SGPT) 18 U/L (8-55); AST (SGOT) 18 U/L (5-34); Albumin 3.5 g/dL (3.5-5.0); Alkaline Phosphatase 79 U/L (40-110); Anion Gap 15 mmol/L (10-20); BUN (Urea Nitrogen) 5 mg/dL (7.0-18.7); Bilirubin, Total 0.1 mg/dL (0.2-1.2); Calc. Creatinine Clearance 0 mL/min (70-130); Calcium 9.2 mg/dL (7.8-10.44); Carbon Dioxide 19 mmol/L (22-29); Chloride 107 mmol/L (98-107); Estimated GFR 124; Globulin 3.9 g/dL (2.4-3.5); Glucose 81 mg/dL (70-105); Protein, Total 7.4 g/dL (6.0-8.3); Sodium 137 mmol/L (136-145)
[2024-08-17] MEDS ORDERED: Lorazepam 2 MG/ML VIAL ONE (10:48)
== END 2024-08-17 13:45 | disposition home or self-care (01) ==
LOC: ERS 01:42
DX: R51.9 Headache, unspecified (principal); H53.8 Other visual disturbances; I10 Essential (primary) hypertension
CPT/HCPCS: 70450; 70544; 70551; 80053; 81001; 84702; 84703; 85025; 96374; 96375; J2060; J2765